=== PATIENT | female | born 1970 | race Caucasian/White ===

== ENCOUNTER 2017-09-03 16:09 | Inpatient (IN) ==
[2017-09-03] MEDS ORDERED: Ondansetron 4 MG/2 ML VIAL IVP ONE (17:02)
[2017-09-03] MEDS ORDERED: GI Cocktail 40 ML EACH PO ONE (17:02)
--- NOTE | 2017-09-03 17:05 | Emergency Department Note ---
Disposition Clinical Impression: Abdominal pain Qualifiers: Abdominal location: epigastric Qualified Code(s): R10.13 - Epigastric pain Pancreatitis Qualifiers: Chronicity: acute Pancreatitis type: unspecified pancreatitis type Acute pancreatitis complication: unspecified Qualified Code(s): K85.90 - Acute pancreatitis without necrosis or infection, unspecified Disposition: Admitted As Inpatient Condition: Good Referrals: NONE,PCP [Primary Care Provider] - Forms: ED Satisfaction Letter Time of Disposition: 19:13 General Adult HPI - General Chief complaint: ED Chest Pain Stated complaint: chest/abd/back pain Time Seen by Provider: 09/03/17 16:19 Source: patient, family (Father, brother) Mode of arrival: ambulatory Limitations: no limitations Nursing Notes Reviewed: Yes Vital Signs Reviewed: Yes - History of Present Illness HPI Narrative: 47-year-old female presents with abdominal pain. Patient re-presents an emergency department after recurrence of pain. She was initially evaluated earlier today here in the emergency department and was discharged home. She states yesterday around 1999 she began feeling nauseated and experience a sharp pain mostly in the left upper quadrant that wrapped around to the right upper quadrant. Nothing seems to make it better or worse. Maybe some association with meals but her appetite has decreased. She was seen and evaluated here with a chest pain workup including a gallbladder ultrasound due to her elevated LFT and bilirubin which did not reveal any acute abnormality. She was scheduled with gastroenterology as an outpatient discharge home pain-free after G.I. cocktail. Patient went home around 9 o'clock and was prescribed Carafate which she took and fell asleep and had roughly additional 2 hours of relief. Around 11 o'clock she began experiencing the pain began. She reports a constant cramping and aching that progressively becomes sharp in nature. Sometimes last seconds to minutes. She denies any injury or trauma. History of cholecystectomy 20 years ago. Denies any other complaints at this time. Denies alcohol use. Denies any cardiac ischemic disease. EKG performed at that time did not reveal any acute ischemic changes. Troponin less than 0.03. Pain Scale: 10 - Related Data Home Medications Medication Instructions Recorded Confirmed Aspirin [Lo-Dose Aspirin EC] 81 mg PO DAILY 09/03/17 09/03/17 Multivit-Min/FA/Lycopen/Lutein [A 1 tab PO DAILY 09/03/17 09/03/17 Thru Z Select Multivit Tab] Previous Rx's Medication Instructions Recorded Omeprazole 20 mg PO DAILY #30 tablet. 09/03/17 Sucralfate [Carafate] 1 gm PO QIDA #56 tablet 09/03/17 Allergies Allergy/AdvReac Type Severity Reaction Status Date / Time No Known Allergies Allergy Verified 04/01/17 10:29 All systems ED: reviewed and negative except as stated. Review of Systems: As Per HPI Constitutional: Denies: fever Cardiovascular: Denies: chest pain Respiratory: Denies: cough, dyspnea Gastrointestinal: Reports: abdominal pain, nausea, vomiting Genitourinary: Denies: urgency, dysuria, hematuria Musculoskeletal: Reports: back pain. Denies: neck pain Past Medical History - Past Medical History Attestation: Yes The following information was validated with the patient. Source: patient Medical history: Reports: no medical history Psychiatric history: Reports: no psych history - Social History Smoking Status: Current every day smoker Smokeless Tobacco Status: No Alcohol use: Reports: none Drug use: Reports: none Physical Exam - General General appearance: alert, in no apparent distress - Head Head exam: atraumatic, normocephalic, normal inspection - Eye Eye exam: Present: normal appearance, PERRL, EOMI - ENT ENT exam: normal exam, normal oropharynx, mucous membranes moist - Neck Neck exam: Present: normal inspection, full ROM, trachea midline - Chest Chest inspection: Present: normal inspection, symmetric chest wall rise - Respiratory Respiratory exam: Present: normal lung sounds bilaterally. Absent: respiratory distress, wheezes - Cardiovascular Cardiovascular exam: Present: regular rate, normal rhythm, normal heart sounds - Abdominal Exam Abdominal exam: Present: soft, tenderness, normal bowel sounds. Absent: distention, guarding, rebound, rigidity, Mcgee's sign, Rovsing's sign, tenderness at McBurney's Point Abdominal tenderness: Present: LUQ, epigastrium - Extremities Exam Extremities exam: Present: normal inspection, full ROM. Absent: tenderness, pedal edema - Back Exam Back exam: Present: normal inspection, full ROM, CVA tenderness (L). Absent: tenderness - Neurological Exam Neurological exam: Present: alert, oriented X3 - Skin Skin exam: Present: warm, dry, intact, normal color. Absent: rash, cyanosis, diaphoresis Course Course Narrative: Patient Ray presents with similar complaints from earlier this morning. Initial workup was unremarkable other than elevated LFT and bilirubin. Patient was given outpatient follow-up with gastroenterologists. On examination she is mildly tender in the epigastric region. There is some voluntary guarding as well. Normal bowel sounds. Reviewed her prior workup and will repeat troponin , EKG and obtain a CT of the abdomen and pelvis. She had relief with a G.I. cocktail earlier today and will attempt again. Zofran for nausea as well. Patient is in agreement with this plan. - Reevaluation(s) Reevaluation #1: Troponin again is less than 0.03. EKG revealed normal sinus rhythm without acute ischemic changes. CT confirmed acute pancreatitis without fluid collection. She also has a fat containing umbilical hernia and nonobstructing right nephrolithiasis. Review of her prior lipase was within normal limits of 33. Will admit her for symptom control for pancreatitis she needs to criteria of clinical presentation and radiologic imaging. Patients in agreement this plan. Will continue with fluid hydration and symptom control. Patient will be NPO. Impression is acute pancreatitis and abdominal pain. Time: 19:13 - Consultations Consultation #1: Spoke with on-call hospitalist kyra Parker to admit for acute pancreatitis. No further orders at this time Time: 19:16 Vital Signs Temperature 98.0 F 09/03/17 16:10 Pulse Rate 93 09/03/17 16:10 Respiratory Rate 23 09/03/17 16:10 Blood Pressure 130/80 09/03/17 16:10 O2 Sat by Pulse Oximetry 95 09/03/17 16:10 Temperature 98.0 F 09/03/17 16:21 Pulse Rate 83 09/03/17 18:46 Respiratory Rate 20 09/03/17 18:46 Blood Pressure 153/97 09/03/17 18:46 O2 Sat by Pulse Oximetry 95 09/03/17 18:46 Oxygen Delivery Oxygen Delivery Room Air Medical Decision Making - MDM Narrative Medical decision making narrative: Patient was discussed with my attending physician who agrees with ED management and final disposition. They independently evaluated the patient. Please refer to their attestation to this encounter for additional information. This note was generated by [employer] voice recognition software and as a result grammatical or spelling errors may occur using this program. - Medical Records Medical records reviewed: Yes I reviewed the patient's medical records. - Lab Data Lab results reviewed: Yes I reviewed the patient's lab results. Lab Results 09/03/17 Range/Units 17:10 Troponin I < 0.03 (< 0.04) ng/mL - Radiology Data Radiology results reviewed: Yes I reviewed the patient's radiology results. Abdomen/Pelvis CT 09/03/17 17:03 IMPRESSION: 1. Acute pancreatitis. No organized fluid collections are identified. Adjacent lymphadenopathy, likely reactive. 2. Nonobstructing right nephrolithiasis. 3. Mild intrahepatic and extrahepatic biliary dilatation, likely postsurgical. 4. Fat filled periumbilical hernia. D/ / Edy Pires MD / Edy Pires MD Interpreting Provider: Edy Pires MD
--- NOTE | 2017-09-03 17:11 | Emergency Department Note ---
Disposition Clinical Impression: Abdominal pain Qualifiers: Abdominal location: generalized Qualified Code(s): R10.84 - Generalized abdominal pain Disposition: Still a Patient Referrals: NONE,PCP [Primary Care Provider] - Forms: ED Satisfaction Letter General Adult HPI - General Chief complaint: ED Chest Pain Stated complaint: chest/abd/back pain Time Seen by Provider: 09/03/17 16:19 - History of Present Illness Pain Scale: 10 - Related Data Home Medications Medication Instructions Recorded Confirmed Aspirin 04/01/17 Centrum Complete Multivit Tab 04/01/17 Previous Rx's Medication Instructions Recorded Amoxicillin [Amoxil] 500 mg PO TID #30 capsule 04/01/17 GuaiFENesin/Codeine [ROBITUSSIN 5 ml PO Q4-6H PRN #120 ml 04/01/17 w/CODEINE] Ondansetron [Zofran] 8 mg PO Q8HR #15 tablet 04/01/17 Cyclobenzaprine [Flexeril] 10 mg PO TID PRN 7 Days #21 tablet 07/14/17 Naproxen 500 mg PO BID 10 Days #20 tablet 07/14/17 predniSONE [PredniSONE] 20 mg PO DAILY #13 tablet 07/14/17 Omeprazole 20 mg PO DAILY #30 tablet. 09/03/17 Sucralfate [Carafate] 1 gm PO QIDAC #56 tablet 09/03/17 Allergies Allergy/AdvReac Type Severity Reaction Status Date / Time No Known Allergies Allergy Verified 04/01/17 10:29 Past Medical History - Past Medical History Medical history: Reports: no medical history Psychiatric history: Reports: no psych history - Social History Smoking Status: Current every day smoker Smokeless Tobacco Status: No Alcohol use: Reports: none Drug use: Reports: none Physical Exam - General General appearance: alert, in no apparent distress Course - Reevaluation(s) Reevaluation #1: ATTESTATION NOTE I examined this patient and my medical decision-making was reviewed with the [employer] TRAINER/PA/Advanced Practice Nurse/Resident Physician. I agree with the documented findings, disposition and treatment plan as described except to the extent set forth below. ED attending note: Patient seen with emergency medicine resident Dr. Steven Vega. We independently evaluated the patient. We independently had face-to- face contact with the patient. Please see a copy of his note for details of the history and physical, evaluation, management and disposition of this emergency Department patient. Briefly: 47-year-old female seen about 7:00 this morning by the emergency department attending Dylan Chambers and resident Frank Pardo, please see copy of their note for details of that portion the patient encounter. Patient an extensive workup including right upper quadrant ultrasound after elevated LFTs found on lab which was negative. Patient seemed to check cocktail had symptom resolution went home and slept with the same pain in the epigastric quadrant areas here for further evaluation she surgically benign afebrile stable vital signs patient is getting antiemetics screening labs and abdominopelvic CT. Disposition pending. Time: 17:09 Vital Signs Temperature 98.0 F 09/03/17 16:10 Pulse Rate 93 09/03/17 16:10 Respiratory Rate 23 09/03/17 16:10 Blood Pressure 130/80 09/03/17 16:10 O2 Sat by Pulse Oximetry 95 09/03/17 16:10 Temperature 98.0 F 09/03/17 16:21 Pulse Rate 93 09/03/17 16:21 Respiratory Rate 23 09/03/17 16:21 Blood Pressure 130/80 09/03/17 16:21 O2 Sat by Pulse Oximetry 95 09/03/17 16:21 Oxygen Delivery Oxygen Delivery Room Air
[2017-09-03 17:48] LABS: Troponin I < 0.03 ng/mL (< 0.04)
[2017-09-03] MEDS ORDERED: 0.9 % Sodium Chloride 1,000 ML IVC ONE (18:26)
[2017-09-03] MEDS ORDERED: *HR* FentaNYL (PF) 100 MCG/2 ML VIAL IVP ONE (18:39)
[2017-09-03] MEDS ORDERED: Ondansetron 4 MG/2 ML VIAL IVP PRN (19:46)
[2017-09-03] MEDS ORDERED: Naloxone 0.4 MG/ML INJ IVP PRN (19:46)
[2017-09-03] MEDS ORDERED: OXYCODONE Oral CONC 10 MG/0.5 ML ORAL.SYG SL PRN ×2 (19:46)
--- NOTE | 2017-09-03 19:50 | Internal Med History&Physical ---
Date of Encounter: 09/03/17 Time of Encounter: 19:48 Internal Medicine - H&P: HPI Chief complaint: Abdominal pain Admitted From: Emergency Dept History of present illness: Ms. Dickson is a 47 year old female with a past medical history of GERD and tobacco abuse who came to emergency room complaining of abdominal pain that started last night around 8 PM, in the morning she was sent back home with Carafate and omeprazole and order to follow-up with GI as her lipase was only 36 , the patient has vomited 4 times since yesterday and the abdominal pain got worse 10 out of 10 in intensity and got better down to 6 out of [address] scan of the abdomen showed findings compatible with acute pancreatitis and surrounding lymphadenopathy also nonobstructive right nephrolithiasis and intra-and extrahepatic dilatation compatible with prior cholecystectomy. Last time she ate was at 9 AM this morning. Her AST is 205 ALT 244. Heart rate was 110. Denies any other symptoms Past Med Surg Social Fam HX - Past Medical History Medical history: other (Tobacco abuse, GERD, cholelithiasis) Psychiatric history: no psych history - Past Surgical History Surgical History: cholecystectomy (20 years ago) - Social History Smoking Status: Current every day smoker Packs per day: One pack per day Smokeless Tobacco Status: No Alcohol use: none (Denies any drinking) Drug use: none - Additional Family History Additional family history: Father and mother with CAD with stents Internal Medicine - H&P: Meds Aspirin [Lo-Dose Aspirin EC] 81 mg PO DAILY 09/03/17 [History] Multivit-Min/FA/Lycopen/Lutein [A Thru Z Select Multivit Tab] 1 tab PO DAILY [History] Omeprazole 20 mg PO DAILY #30 tablet. 09/03/17 [Rx] Sucralfate [Carafate] 1 gm PO QIDAC #56 tablet 09/03/17 [Rx] 3 Allergy/AdvReac Type Severity Reaction Status Date / Time No Known Allergies Allergy Verified 04/01/17 10:29 All Systems PM: A 10-system review of systems was performed and is negative for pertinent findings except as documented above in the HPI. Review of systems: No chest pain, no dysuria, no diarrhea, no fevers, other systems out of the 10 reviewed were negative - Constitutional Vitals: Temp Pulse Resp BP Pulse Ox 98.0 F 83 20 153/97 95 09/03/17 16:21 09/03/17 18:46 09/03/17 18:46 09/03/17 18:46 09/03/17 18:46 General appearance: Present: A&O X 3 (Dry mucosa, appears dehydrated) - Head Head exam: Present: atraumatic, normocephalic - Eye Eye exam: Present: PERRL, conjuntiva pink, sclera anicteric Pupils: Present: PERRL - Neck Neck exam general surgery: Present: supple, trachea midline. Absent: lymphadenopathy - Respiratory Respiratory exam: Present: CTAB. Absent: accessory muscle use, rales, rhonchi, wheezes - Cardiovascular Cardiovascular exam: Present: RRR, +S1, +S2. Absent: diastolic murmur, gallop, rubs, systolic murmur - GI/Abdominal GI/Abdominal exam: Present: distended, normal bowel sounds, soft, tenderness ( Severe epigastric tenderness), no peritoneal signs - Extremities Exam Extremities exam: Present: warm, radial pulses palpable and symmetrical. Absent : calf tenderness, cyanotic, pedal edema - Neurological Exam Neurological exam: Present: CN II-XII intact, oriented X3, no focal deficits. Absent: pronater drift, facial droop, speech deficit - Skin Skin exam: Present: dry, intact Internal Med - H&P Results - Labs Labs: Troponin is less than 0.03 - Assessment and plan (1) Pancreatitis Current Visit: Yes Status: Acute Assessment and plan: Acute pancreatitis Does not drink alcohol Unclear etiology, order lipid panel We will order lipase was morning Consider MRI of the abdomen if she has not improving to consider possible mass with lymphadenopathy Nothing by mouth, IV fluids, pain control Protonix IV for GI prophylaxis and subcutaneous tenderness heparin for DVT prophylaxis. The patient will be admitted as inpatient, expected to stay more than 2 midnights. Full code. Time spent on this admission 40 minutes Qualifiers: Chronicity: acute Pancreatitis type: unspecified pancreatitis type Acute pancreatitis complication: unspecified Qualified Code(s): K85.90 - Acute pancreatitis without necrosis or infection, unspecified (2) Dehydration Current Visit: Yes Status: Acute (3) Tobacco abuse Current Visit: Yes Status: Acute Assessment and plan: Smoking cessation counseling given for 5 minutes, nicotine patch ordered (4) Elevated LFTs Current Visit: No Status: Acute Assessment and plan: Likely related to pancreatitis (5) GERD (gastroesophageal reflux disease) Current Visit: No Status: Acute Qualifiers: Esophagitis presence: esophagitis presence not specified Qualified Code(s) : K21.9 - Gastro-esophageal reflux disease without esophagitis (6) Nausea and vomiting Current Visit: No Status: Acute Qualifiers: Vomiting type: unspecified Vomiting Intractability: non-intractable Qualified Code(s): R11.2 - Nausea with vomiting, unspecified - Time Spent With Patient Total time spent is greater than 50% in coordination of care (as documented) at patient's floor/unit and/or counseling patient:
[2017-09-03 19:53] LABS: Chol/HDL Ratio 7.7 (0-4.9); Cholesterol 278 mg/dL (< 200); HDL Cholesterol 36 mg/dL (40-59); LDL Cholesterol,Calculated 208 mg/dL (0-99); Triglycerides 170 mg/dL (< 150)
[2017-09-03] MEDS: Nicotine 21 MG PATCH.TD24 TD SCH (20:55)
[2017-09-03] MEDS: Acetaminophen 325 MG TABLET PO PRN (20:55)
[2017-09-03] MEDS: 0.9 % Sodium Chloride 1,000 ML IVC SCH (23:14)
[2017-09-04] MEDS: *HR* Heparin 5,000 UNIT/ML VIAL SQ SCH ×4 (00:55→23:22)
[2017-09-04] MEDS: Acetaminophen 325 MG TABLET PO PRN ×3 (00:58→23:28)
[2017-09-04] MEDS: Pantoprazole 40 MG VIAL IVP SCH ×2 (00:58→05:09)
[2017-09-04] MEDS: 0.9 % Sodium Chloride 1,000 ML IVC SCH (05:10)
[2017-09-04 05:21] LABS: Basophils % 0.3 %; Eosinophils % 0.5 %; Hematocrit 36.9 % (35.3-44.9); Hemoglobin 12.8 g/dL (11.5-15.4); Immature Granulocytes % 0.3 % (0-4); Lymphocytes # 1.3 K/mcL (0.6-4.6); Lymphocytes % 21.4 %; Mean Corpuscular HGB Conc 34.7 g/dL (31.6-35.5); Mean Corpuscular Hemoglobin 30.8 pg (28.0-33.3); Mean Corpuscular Volume 88.7 fL (83.0-100.0); Mean Platelet Volume 10.1 fL (9.4-12.4); Monocytes # 0.3 K/mcL (0.0-1.3); Monocytes % 5.3 %; Neutrophils # 4.3 K/mcL (1.6-8.9); Platelet Count 197 K/mcL (140-400); Red Blood Count 4.16 M/mcL (3.82-4.97); Red Cell Distribution Width 12.9 % (11.5-14.5); Segmented Neutrophils % 72.2 %
[2017-09-04 06:00] LABS: Alanine Aminotransferase 187 Units/L (7-52); Albumin 3.8 g/dL (3.5-5.7); Albumin/Globulin Ratio 1.3 (1.1-2.2); Alkaline Phosphatase 142 Units/L (34-104); Aspartate Amino Transferase 108 Units/L (13-39); BUN/Creatinine Ratio 11 (6-26); Bilirubin,Total 1.8 mg/dL (0.3-1.0); Blood Urea Nitrogen 8 mg/dL (6-20); Calcium 8.6 mg/dL (8.6-10.3); Carbon Dioxide 25 mEq/L (23-29); Chloride 109 mEq/L (98-107); Chol/HDL Ratio 8.2 (0-4.9); Cholesterol 214 mg/dL (< 200); Globulin 2.9 g/dL (2.4-3.5); Glucose 108 mg/dL (70-105); HDL Cholesterol 26 mg/dL (40-59); LDL Cholesterol,Calculated 161 mg/dL (0-99); Lipase 1746 Units/L (11-82); Osmolality,Calculated 289 (280-300); Potassium 3.9 mEq/L (3.5-5.1); Sodium 140 mEq/L (136-145); Total Protein 6.7 g/dL (6.4-8.9); Triglycerides 137 mg/dL (< 150); eGFR For African Americans > 60 (> 60); eGFR For Non-African Americans > 60 (> 60)
[2017-09-04] MEDS: Nicotine 21 MG PATCH.TD24 TD SCH (10:36)
[2017-09-04] MEDS: Acetaminophen/Aspirin/Caffeine TABLET PO PRN ×2 (11:25→17:29)
--- NOTE | 2017-09-04 16:08 | Internal Med Progress Note ---
Date of Encounter: 09/04/17 Time of Encounter: 13:10 - Assessment and plan (1) Pancreatitis Current Visit: Yes Status: Acute Assessment and plan: Improving clinically, he reported feeling hungry and requested diet. Continue clear liquid diet as tolerated, pain control with oral oxycodone, IV hydration, PPI, when necessary antiemetics. Etiology likely due to small biliary stone as patient also has mild hepatitis with elevated LFTs; serum lipase noted to be elevated. Qualifiers: Chronicity: acute Pancreatitis type: unspecified pancreatitis type Acute pancreatitis complication: no infection or necrosis Qualified Code(s): K85.90 - Acute pancreatitis without necrosis or infection, unspecified (2) GERD (gastroesophageal reflux disease) Current Visit: Yes Status: Chronic Qualifiers: Esophagitis presence: esophagitis presence not specified Qualified Code(s) : K21.9 - Gastro-esophageal reflux disease without esophagitis (3) Tobacco abuse Current Visit: Yes Status: Chronic Assessment and plan: Continue nicotine transdermal patch. - Time Spent With Patient Total time spent is greater than 50% in coordination of care (as documented) at patient's floor/unit and/or counseling patient: - Subjective Interval history: Reports feeling better with improving abdominal pain, however still has mild to moderate pain in epigastrium and left upper quadrant, radiating to her left back. No nausea, vomiting, diarrhea. Tolerates clear liquid diet. - Constitutional Vitals: Temp Pulse Resp BP Pulse Ox 98.3 F 64 16 127/73 96 09/04/17 15:04 09/04/17 15:04 09/04/17 15:04 09/04/17 15:04 09/04/17 15:04 General appearance: Present: A&O X 3, answers questions appropriately - Respiratory Respiratory exam: Present: CTAB. Absent: accessory muscle use, rales, rhonchi, wheezes - Cardiovascular Cardiovascular exam: Present: RRR, +S1, +S2. Absent: diastolic murmur, gallop, rubs, systolic murmur - GI/Abdominal GI/Abdominal exam: Present: normal bowel sounds, soft (obese; tenderness in epigastrium/LUQ), no peritoneal signs. Absent: distended, tenderness - Extremities Exam Extremities exam: Present: full ROM, warm, radial pulses palpable and symmetrical. Absent: calf tenderness, cyanotic, pedal edema - Neurological Exam Neurological exam: Present: CN II-XII intact, oriented X3, no focal deficits. Absent: pronater drift, facial droop, speech deficit Internal Medicine: Result - Labs CBC & Chem 7: 09/04/17 04:56 09/04/17 04:56 Labs: Short CBC 09/04/17 Range/Units 04:56 WBC 5.9 (4.3-11.1) K/mcL Hgb 12.8 (11.5-15.4) g/dL Hct 36.9 (35.3-44.9) % Plt Count 197 (140-400) K/mcL Neutrophils # 4.3 (1.6-8.9) K/mcL BMP 09/04/17 04:56 Sodium 140 Potassium 3.9 Chloride 109 H Carbon Dioxide 25 BUN 8 Creatinine 0.74 Glucose 108 H Calcium 8.6 Liver Function 09/04/17 Range/Units 04:56 Total Bilirubin 1.8 H (0.3-1.0) mg/dL AST 108 H (13-39) Units/L ALT 187 H (7-52) Units/L Alkaline Phosphatase 142 H (34-104) Units/L Albumin 3.8 (3.5-5.7) g/dL Consult Discharge Plan - Plan Referrals: NONE,PCP [Primary Care Provider] -
[2017-09-05] MEDS: *HR* Heparin 5,000 UNIT/ML VIAL SQ SCH (05:08)
[2017-09-05 05:54] LABS: Alanine Aminotransferase 126 Units/L (7-52); Albumin 3.8 g/dL (3.5-5.7); Albumin/Globulin Ratio 1.2 (1.1-2.2); Alkaline Phosphatase 126 Units/L (34-104); Aspartate Amino Transferase 46 Units/L (13-39); BUN/Creatinine Ratio 13 (6-26); Bilirubin,Total 0.7 mg/dL (0.3-1.0); Blood Urea Nitrogen 8 mg/dL (6-20); Calcium 9.1 mg/dL (8.6-10.3); Carbon Dioxide 27 mEq/L (23-29); Chloride 104 mEq/L (98-107); Globulin 3.1 g/dL (2.4-3.5); Glucose 101 mg/dL (70-105); Osmolality,Calculated 280 (280-300); Potassium 3.6 mEq/L (3.5-5.1); Sodium 136 mEq/L (136-145); Total Protein 6.9 g/dL (6.4-8.9); eGFR For African Americans > 60 (> 60); eGFR For Non-African Americans > 60 (> 60)
[2017-09-05] MEDS: Pantoprazole 40 MG VIAL IVP SCH (06:25)
[2017-09-05] MEDS: Nicotine 21 MG PATCH.TD24 TD SCH (09:28)
[2017-09-05] MEDS: Acetaminophen 325 MG TABLET PO PRN (12:58)
--- NOTE | 2017-09-05 15:19 | Discharge Summary ---
- NOTES TO OUTPATIENT PROVIDER Notes to Outpatient Provider: Acute pancreatitis, probably biliary; Date of Encounter: 09/05/17 Time of Encounter: 15:17 - Discharge Diagnosis (1) Pancreatitis Priority: Primary Status: Acute Qualifiers: Chronicity: acute Pancreatitis type: unspecified pancreatitis type Acute pancreatitis complication: no infection or necrosis Qualified Code(s): K85.90 - Acute pancreatitis without necrosis or infection, unspecified (2) GERD (gastroesophageal reflux disease) Priority: Secondary Status: Chronic Qualifiers: Esophagitis presence: esophagitis presence not specified Qualified Code(s) : K21.9 - Gastro-esophageal reflux disease without esophagitis (3) Tobacco abuse Priority: Secondary Status: Chronic Hospital course: Ms. Dickson is a 47 year old female with the above medical problems, who was admitted with epigastric and left upper quadrant abdominal pain. CT abdomen/ pelvis showed acute pancreatitis. Serum lipase was elevated. Etiology is undetermined, probably biliary. Patient is status post cholecystectomy, does not consume alcohol. She was started on conservative management with bowel rest , IV hydration, pain control, when necessary antiemetics and PPI. Her pain significantly improved by the next day and she was able to tolerate diet. Liver enzymes were elevated at the time of admission, now improving, this is probably related to small biliary stones. Patient is currently medically stable for discharge with recommendations to continue low-fat/low-cholesterol diet and outpatient follow-up. Discharge discussed with: patient - Time Spent with Patient Total time spent providing and/or coordinating discharge services: Greater than 30 minutes (40 min) - Discharge Medications Home Medications: Aspirin [Lo-Dose Aspirin EC] 81 mg PO DAILY 09/03/17 [History] Multivit-Min/FA/Lycopen/Lutein [A Thru Z Select Multivit Tab] 1 tab PO DAILY [History] Omeprazole 20 mg PO DAILY #30 tablet. 09/03/17 [Rx] Sucralfate [Carafate] 1 gm PO QIDAC #56 tablet 09/03/17 [Rx] Acetaminophen [Tylenol] 650 mg PO Q4HR PRN tablet 09/05/17 [Rx] Allergies/Adverse Reactions: 3 Allergy/AdvReac Type Severity Reaction Status Date / Time No Known Allergies Allergy Verified 04/01/17 10:29 Date of admission: 09/03/17 19:43 Primary care physician: PCP NONE Discharging clinician: Tova Johnson Anticipated date of discharge: 09/05/17 - Constitutional Vitals: Temp Pulse Resp BP Pulse Ox 99.1 F 86 16 126/79 93 09/05/17 10:52 09/05/17 10:52 09/05/17 10:52 09/05/17 10:52 09/05/17 10:52 General appearance: Present: A&O X 3, answers questions appropriately - GI/Abdominal GI/Abdominal exam: Present: normal bowel sounds, soft (mild epigastric and LUQ tenderness), no peritoneal signs. Absent: distended, tenderness - Patient Status Disposition: Home, Self-Care Condition: Good Functional capacity at discharge: independent ambulation Overall status at discharge: patient is progressing back to baseline - Discharge Instructions Instructions: Pancreatitis (DC) Follow Up With: NONE,PCP [Primary Care Provider] - (Gave patient phone # to find a PCP. ) Forms: Work/School Release Additional Instructions: F/up with PCP in 1-2 weeks - Diet and Activity Activity: resume usual activities as tolerated Diet: low fat, low cholesterol
[2017-09-05 15:59] VITALS: BP 113/78
--- NOTE | 2017-09-06 21:32 | Electrocardiograph Report ---
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
== END 2017-09-05 16:56 | disposition home or self-care (01) | DRG 440 ==
LOC: 3ANU 16:09 → EMEROO 16:09 → SUATTDRO 19:43 → 3ANU 20:22
PROVIDERS: ADMIT Internal Medicine Hematology & Oncology; ATTEND Internal Medicine

== ENCOUNTER 2018-01-06 05:26 | Inpatient (IN) ==
[2018-01-06 05:50] LABS: Basophils % 0.1 %; Eosinophils % 0.1 %; Hemoglobin 14.3 g/dL (11.5-15.4); Immature Granulocytes % 0.3 % (0-4); Lymphocytes # 0.4 K/mcL (0.6-4.6); Lymphocytes % 4.4 %; Mean Corpuscular Hemoglobin 29.1 pg (28.0-33.3); Mean Corpuscular Volume 85.5 fL (83.0-100.0); Mean Platelet Volume 9.8 fL (9.4-12.4); Monocytes # 0.2 K/mcL (0.0-1.3); Neutrophils # 7.3 K/mcL (1.6-8.9); Platelet Count 208 K/mcL (140-400); Red Blood Count 4.91 M/mcL (3.82-4.97); Red Cell Distribution Width 12.4 % (11.5-14.5); Segmented Neutrophils % 93.1 %
[2018-01-06] MEDS ORDERED: Hyoscyamine SL 0.125 MG TAB.SUBL SL STA (05:51)
[2018-01-06] MEDS ORDERED: *HR* FentaNYL (PF) 100 MCG/2 ML VIAL IVP ONE ×3 (05:51→10:06)
[2018-01-06] MEDS ORDERED: Ondansetron 4 MG/2 ML VIAL IVP ONE (05:51)
[2018-01-06 05:55] LABS: INR 1.4; Prothrombin Time 15.2 Seconds (9.4-12.1)
--- NOTE | 2018-01-06 05:56 | Emergency Department Note ---
Disposition Clinical Impression: Epigastric pain Disposition: Still a Patient Referrals: Chantal Arteaga, IRVIN [Primary Care Provider] - Forms: ED Satisfaction Letter, Work/School Release Abdominal Pain HPI - General Chief Complaint: ED Abdominal Pain Stated Complaint: cp Time Seen by Provider: 01/06/18 05:29 Source: patient Mode of arrival: ambulatory Limitations: no limitations Nursing Notes Reviewed: Yes Vital Signs Reviewed: Yes - History of Present Illness HPI Narrative: 47 year old female with history of hyperthyroid and pancreatitis arrives to the ED complaining of epigastric pain with associated nausea that started roughly 24 hours ago. The patient was seen in the ED 1 day ago for same complaint. The patient had labwork and CT that reveals no acute process. The patient was discharged home with [facility] but did not fill her Rx yet. The patient denies any other complaint at this time. She is uncomfortable on exam moaning in the room secondary to the pain. She states this was kind of like her previous diagnosis of pancreatitis. Pain Scale: 9 - Related Data Home Medications Medication Instructions Recorded Confirmed RX: Aspirin [Lo-Dose Aspirin EC] 81 mg PO DAILY 09/03/17 09/03/17 RX: Multivit-Min/FA/Lycopen/Lutein 1 tab PO DAILY 09/03/17 09/03/17 [A Thru Z Select Multivit Tab] Previous Rx's Medication Instructions Recorded RX: Omeprazole 20 mg PO DAILY #30 tablet. 09/03/17 RX: Sucralfate [Carafate] 1 gm PO QIDAC #56 tablet 09/03/17 RX: Acetaminophen [Tylenol] 650 mg PO Q4HR PRN tablet 09/05/17 HYDROcodone/Acet 5/325 mg [[place] 1 tab PO Q6H PRN 3 Days #6 tab 01/05/18 5-325 mg] Mag Hydrox/Al Hydrox/Simeth 15 ml PO Q6HR #300 udc 01/05/18 [Maalox] Allergies Allergy/AdvReac Type Severity Reaction Status Date / Time No Known Allergies Allergy Verified 04/01/17 10:29 All systems ED: reviewed and negative except as stated. Constitutional: Denies: fever, chills, weakness Cardiovascular: Denies: chest pain Respiratory: Denies: dyspnea Gastrointestinal: Reports: abdominal pain, nausea. Denies: vomiting, diarrhea, constipation, hematemesis, melena, hematochezia Genitourinary: Denies: urgency, dysuria Musculoskeletal: Denies: back pain, arthralgia Integumentary: Denies: rash Neurological: Denies: headache Abdominal Pain PMH - Past Medical History Medical history: Reports: other Reports: pancreatitis Female Surgical History: Reports: cholecystectomy, other Psychiatric history: Reports: no psych history - Social History Smoking status: Current every day smoker Alcohol use: Reports: none Drug use: Reports: none Physical Exam - General Limitations: no limitations General appearance: alert, in no apparent distress - Head Head exam: atraumatic, normocephalic, normal inspection - Eye Eye exam: Present: normal appearance, PERRL, EOMI - ENT ENT exam: normal exam, normal oropharynx, mucous membranes moist - Neck Neck exam: Present: normal inspection, full ROM, trachea midline - Chest Chest inspection: Present: normal inspection, symmetric chest wall rise - Respiratory Respiratory exam: Present: normal lung sounds bilaterally - Cardiovascular Cardiovascular exam: Present: regular rate, normal rhythm, normal heart sounds - Abdominal Exam Abdominal exam: Present: soft, tenderness (Epigastric), scar. Absent: distention, guarding, rebound, rigidity, heel tap sign, Mcgee's sign, tenderness at McBurney's Point - Extremities Exam Extremities exam: Present: normal inspection, full ROM. Absent: tenderness, pedal edema - Neurological Exam Neurological exam: Present: alert, oriented X3 - Skin Skin exam: Present: warm, dry, intact, normal color Course Vital Signs Temperature 97.7 F 01/06/18 05:31 Pulse Rate 90 01/06/18 05:31 Respiratory Rate 16 01/06/18 05:31 Blood Pressure 102/66 01/06/18 05:31 O2 Sat by Pulse Oximetry 96 01/06/18 05:31 Temperature 97.7 F 01/06/18 05:31 Pulse Rate 78 01/06/18 06:26 Respiratory Rate 20 01/06/18 06:26 Blood Pressure 127/77 01/06/18 06:26 O2 Sat by Pulse Oximetry 99 01/06/18 06:26 Oxygen Delivery Oxygen Delivery Room Air Abdominal Pain - MDM Narrative Medical decision making narrative: Heart rate 87 bpm. Normal sinus rhythm. No ST elevation or ST depression noted. No acute changes. - Lab Data Lab results reviewed: Yes I reviewed the patient's lab results. Result diagrams: 01/06/18 05:37 Lab Results 01/06/18 01/06/18 01/06/18 Range/Units 05:37 05:37 05:37 WBC 7.9 (4.3-11.1) K/mcL RBC 4.91 (3.82-4.97) M/mcL Hgb 14.3 (11.5-15.4) g/dL Hct 42.0 (35.3-44.9) % MCV 85.5 (83.0-100.0) fL MCH 29.1 (28.0-33.3) pg MCHC 34.0 (31.6-35.5) g/dL RDW 12.4 (11.5-14.5) % Plt Count 208 (140-400) K/mcL MPV 9.8 (9.4-12.4) fL Immature Gran % 0.3 (0-4) % Seg Neutrophils % 93.1 % Lymphocytes % 4.4 % Monocytes % 2.0 % Eosinophils % 0.1 % Basophils % 0.1 % Neutrophils # 7.3 (1.6-8.9) K/mcL Lymphocytes # 0.4 L (0.6-4.6) K/mcL Monocytes # 0.2 (0.0-1.3) K/mcL Eosinophils # 0.0 (0.0-0.6) K/mcL Basophils # 0.0 (0.0-0.2) K/mcL PT 15.2 H (9.4-12.1) Seconds INR 1.4 APTT 29.5 (26.0-36.0) Seconds Troponin I < 0.03 (< 0.04) ng/mL Attestation Statement - Attestation Attestation: I examined this patient and my medical decision-making was reviewed with the Resident Physician. I agree with the documented findings, disposition and treatment plan as described except to the extent set forth below. Findings consistent with nonspecific epigastric pain. She was seen yesterday and had a CT scan which shows no acute findings. Chest ongoing pain and history of pancreatitis. Plan to admit for GI consultation for intractable epigastric pain in the setting of possible idiopathic pancreatitis.
[2018-01-06 05:57] LABS: Activated Partial Thrombo Time 29.5 Seconds (26.0-36.0)
--- NOTE | 2018-01-06 05:59 | Emergency Department Note ---
Disposition Clinical Impression: Epigastric pain Disposition: Still a Patient Forms: ED Satisfaction Letter, Work/School Release Time of Disposition: 06:16 General Adult HPI - General Chief complaint: ED Abdominal Pain Stated complaint: cp Time Seen by Provider: 01/06/18 05:29 Source: patient Mode of arrival: ambulatory Limitations: no limitations Vital Signs Reviewed: Yes - History of Present Illness HPI Narrative: The patient is a 47 year old female with a history of hyperthyroid and pancreatitis that presents with epigastric abdominal pain. Per patient's report starting at 07:30 yesterday she developed epigastric abdominal pain that has been continuous since that time. The pain is heavy in character and radiates to the right upper quadrant and to the left upper quadrant at times. The pain is exacerbated by movement, and deep breaths. Patient denies any alleviating factors. She rates her pain a 9/10 at present. Patient was seen in the ED yesterday, her lab work was unremarkable for acute process. Abdominal CT showed no significant acute process. Patient says since being discharged home her pain has worsened and she was unable to go to a pharmacy to feel her prescription for [place]. She admits to nausea. She denies any fever, chills, shortness of breath, vomiting, diarrhea, constipation, dysuria, urinary urgency , hematuria, back pain, and any other associated symptoms. Patient states her symptoms feel similar when she was diagnosed with pancreatitis that required hospitalization in September. Pain Scale: 9 - Related Data Home Medications Medication Instructions Recorded Confirmed Aspirin [Lo-Dose Aspirin EC] 81 mg PO DAILY 09/03/17 09/03/17 Multivit-Min/FA/Lycopen/Lutein [A 1 tab PO DAILY 09/03/17 09/03/17 Thru Z Select Multivit Tab] Previous Rx's Medication Instructions Recorded Omeprazole 20 mg PO DAILY #30 tablet. 09/03/17 Sucralfate [Carafate] 1 gm PO QIDAC #56 tablet 09/03/17 Acetaminophen [Tylenol] 650 mg PO Q4HR PRN tablet 09/05/17 HYDROcodone/Acet 5/325 mg [[place] 1 tab PO Q6H PRN 3 Days #6 tab 01/05/18 5-325 mg] Mag Hydrox/Al Hydrox/Simeth 15 ml PO Q6HR #300 udc 01/05/18 [Maalox] Allergies Allergy/AdvReac Type Severity Reaction Status Date / Time No Known Allergies Allergy Verified 04/01/17 10:29 Constitutional: Denies: fever, chills Eyes: Denies: eye pain, vision change ENT ED: Denies: throat pain, congestion Cardiovascular: Reports: chest pain. Denies: palpitations, syncope Respiratory: Denies: cough, dyspnea, wheezes Gastrointestinal: Reports: abdominal pain, nausea. Denies: vomiting, diarrhea, constipation, hematemesis, melena, hematochezia Genitourinary: Denies: urgency, dysuria, frequency, hematuria Musculoskeletal: Denies: back pain, neck pain Integumentary: Denies: rash, lesions Neurological: Denies: headache, weakness, numbness, paresthesias Past Medical History - Past Medical History Medical history: Reports: other (pancreatitis, hyperthyroid) Surgical history: Reports: cholecystectomy Psychiatric history: Reports: no psych history - Social History Smoking Status: Current every day smoker Packs per day: 0.5 PPD Smokeless Tobacco Status: No Alcohol use: Reports: none Drug use: Reports: none Physical Exam - General Limitations: no limitations General appearance: alert, in distress (mild) - Head Head exam: atraumatic, normocephalic - Eye Eye exam: Present: normal appearance. Absent: scleral icterus, conjunctival injection - ENT ENT exam: normal exam, mucous membranes moist, normal external ear exam - Neck Neck exam: Present: normal inspection, full ROM, trachea midline - Chest Chest inspection: Present: normal inspection, symmetric chest wall rise - Respiratory Respiratory exam: Present: normal lung sounds bilaterally. Absent: respiratory distress, wheezes - Cardiovascular Cardiovascular exam: Present: regular rate, normal rhythm, normal heart sounds. Absent: systolic murmur, diastolic murmur, rubs, gallop - Abdominal Exam Abdominal exam: Present: soft, normal bowel sounds. Absent: distention, guarding, rebound, rigidity Abdominal tenderness: Present: epigastrium, moderate - Extremities Exam Extremities exam: Present: normal inspection, full ROM. Absent: pedal edema - Back Exam Back exam: Present: normal inspection, full ROM - Neurological Exam Neurological exam: Present: alert, oriented X3 - Psychiatric Psychiatric exam: Present: normal affect, normal mood - Skin Skin exam: Present: warm, dry, intact Course Course Narrative: Patient is a 47 year old female that presents with epigastric abdominal pain and nausea. Gastritis, pancreatitis, ACS were all considered in the differential diagnosis. CBC, CMP, Lipase, UA, troponin, EKG, and chest X-ray were ordered. Levsin, fentanyl, and zofran were ordered for pain and nausea control. Vital Signs Temperature 97.7 F 01/06/18 05:31 Pulse Rate 90 01/06/18 05:31 Respiratory Rate 16 01/06/18 05:31 Blood Pressure 102/66 01/06/18 05:31 O2 Sat by Pulse Oximetry 96 01/06/18 05:31 Temperature 97.7 F 01/06/18 05:31 Pulse Rate 90 01/06/18 05:31 Respiratory Rate 16 01/06/18 05:31 Blood Pressure 102/66 01/06/18 05:31 O2 Sat by Pulse Oximetry 96 01/06/18 05:31 Oxygen Delivery Oxygen Delivery Room Air Medical Decision Making - Lab Data Result diagrams: 01/06/18 05:37 Lab Results 01/06/18 01/06/18 Range/Units 05:37 05:37 WBC 7.9 (4.3-11.1) K/mcL RBC 4.91 (3.82-4.97) M/mcL Hgb 14.3 (11.5-15.4) g/dL Hct 42.0 (35.3-44.9) % MCV 85.5 (83.0-100.0) fL MCH 29.1 (28.0-33.3) pg MCHC 34.0 (31.6-35.5) g/dL RDW 12.4 (11.5-14.5) % Plt Count 208 (140-400) K/mcL MPV 9.8 (9.4-12.4) fL Immature Gran % 0.3 (0-4) % Seg Neutrophils % 93.1 % Lymphocytes % 4.4 % Monocytes % 2.0 % Eosinophils % 0.1 % Basophils % 0.1 % Neutrophils # 7.3 (1.6-8.9) K/mcL Lymphocytes # 0.4 L (0.6-4.6) K/mcL Monocytes # 0.2 (0.0-1.3) K/mcL Eosinophils # 0.0 (0.0-0.6) K/mcL Basophils # 0.0 (0.0-0.2) K/mcL PT 15.2 H (9.4-12.1) Seconds INR 1.4 APTT 29.5 (26.0-36.0) Seconds
[2018-01-06 06:13] LABS: Troponin I < 0.03 ng/mL (< 0.04)
[2018-01-06] MEDS ORDERED: 0.9 % Sodium Chloride 1,000 ML IVC ONE ×2 (06:46→07:23)
[2018-01-06 06:48] LABS: Alanine Aminotransferase 135 Units/L (7-52); Albumin 4.3 g/dL (3.5-5.7); Albumin/Globulin Ratio 1.3 (1.1-2.2); Alkaline Phosphatase 146 Units/L (34-104); Aspartate Amino Transferase 93 Units/L (13-39); BUN/Creatinine Ratio 12 (6-26); Bilirubin,Direct 2.6 mg/dL (0.0-0.2); Bilirubin,Indirect 0.8 mg/dL (0.0-1.2); Bilirubin,Total 3.4 mg/dL (0.3-1.0); Blood Urea Nitrogen 10 mg/dL (6-20); Calcium 9.7 mg/dL (8.6-10.3); Carbon Dioxide 25 mEq/L (23-29); Chloride 103 mEq/L (98-107); Globulin 3.3 g/dL (2.4-3.5); Glucose 140 mg/dL (70-105); Lipase > 1800 Units/L (11-82); Osmolality,Calculated 285 (280-300); Potassium 3.6 mEq/L (3.5-5.1); Sodium 137 mEq/L (136-145); Total Protein 7.6 g/dL (6.4-8.9); eGFR For Non-African Americans > 60 (> 60)
--- NOTE | 2018-01-06 07:27 | Emergency Department Note ---
Disposition Clinical Impression: Epigastric pain Pancreatitis Qualifiers: Chronicity: acute Pancreatitis type: other Acute pancreatitis complication: unspecified Qualified Code(s): K85.80 - Other acute pancreatitis without necrosis or infection Disposition: Admitted As Inpatient Condition: Fair General Adult HPI - General Chief complaint: ED Abdominal Pain Stated complaint: cp Time Seen by Provider: 01/06/18 05:29 Source: patient Mode of arrival: ambulatory Limitations: no limitations Nursing Notes Reviewed: Yes Vital Signs Reviewed: Yes - History of Present Illness HPI Narrative: Refer to all previous notes for history of present illness, physical exam, medical decision-making. Pain Scale: 9 - Related Data Home Medications Medication Instructions Recorded Confirmed Aspirin [Lo-Dose Aspirin EC] 81 mg PO DAILY 09/03/17 01/06/18 Multivit-Min/FA/Lycopen/Lutein [A 1 tab PO DAILY 09/03/17 01/06/18 Thru Z Select Multivit Tab] Levothyroxine [Synthroid] 75 mcg PO DAILY 01/06/18 01/06/18 Previous Rx's Medication Instructions Recorded Omeprazole 20 mg PO DAILY #30 tablet. 09/03/17 Acetaminophen [Tylenol] 650 mg PO Q4HR PRN tablet 09/05/17 HYDROcodone/Acet 5/325 mg [[place] 1 tab PO Q6H PRN 3 Days #6 tab 01/05/18 5-325 mg] Mag Hydrox/Al Hydrox/Simeth 15 ml PO Q6HR #300 udc 01/05/18 [Maalox] Allergies Allergy/AdvReac Type Severity Reaction Status Date / Time No Known Allergies Allergy Verified 04/01/17 10:29 Constitutional: Denies: fever, chills, weakness Eyes: Denies: eye pain, vision change ENT ED: Denies: throat pain, congestion Cardiovascular: Denies: chest pain Respiratory: Denies: dyspnea Gastrointestinal: Reports: abdominal pain, nausea. Denies: vomiting, diarrhea, constipation, hematemesis, melena, hematochezia Genitourinary: Denies: urgency, dysuria Musculoskeletal: Denies: back pain, arthralgia Integumentary: Denies: rash Neurological: Denies: headache Past Medical History - Past Medical History Medical history: Reports: other Surgical history: Reports: cholecystectomy Psychiatric history: Reports: no psych history - Social History Smoking Status: Current every day smoker Smokeless Tobacco Status: No Alcohol use: Reports: none Drug use: Reports: none Physical Exam - General Limitations: no limitations General appearance: alert, in no apparent distress Course Vital Signs Temperature 97.7 F 01/06/18 05:31 Pulse Rate 90 01/06/18 05:31 Respiratory Rate 16 01/06/18 05:31 Blood Pressure 102/66 01/06/18 05:31 O2 Sat by Pulse Oximetry 96 01/06/18 05:31 Temperature 97.7 F 01/06/18 05:31 Pulse Rate 82 01/06/18 09:21 Respiratory Rate 20 01/06/18 09:21 Blood Pressure 129/78 01/06/18 09:21 O2 Sat by Pulse Oximetry 97 01/06/18 09:21 Oxygen Delivery Oxygen Delivery Room Air Medical Decision Making - MDM Narrative Medical decision making narrative: 47-year-old female who is having a return visit to the emergency department. She has a past medical history of chronic pancreatitis. Today her lipase is 1800. We are obtaining liver ultrasound as there is concern for choledocholithiasis as patient has elevated hepatic transaminases with her elevated lipase. Reported that she continue to have small stones after her cholecystectomy. Patient had been given analgesia, IV fluids. I have added an additional liter of normal saline. Patient planned to be admitted to the hospitalist for acute on chronic pancreatitis. We obtained liver US and it did not reveal any acute abnormality. Dr. Belle agreed to accept the patient for admission - Lab Data Result diagrams: 01/06/18 05:37 01/06/18 05:37 Lab Results 01/06/18 01/06/18 01/06/18 Range/Units 05:37 05:37 05:37 WBC 7.9 (4.3-11.1) K/mcL RBC 4.91 (3.82-4.97) M/mcL Hgb 14.3 (11.5-15.4) g/dL Hct 42.0 (35.3-44.9) % MCV 85.5 (83.0-100.0) fL MCH 29.1 (28.0-33.3) pg MCHC 34.0 (31.6-35.5) g/dL RDW 12.4 (11.5-14.5) % Plt Count 208 (140-400) K/mcL MPV 9.8 (9.4-12.4) fL Immature Gran % 0.3 (0-4) % Seg Neutrophils % 93.1 % Lymphocytes % 4.4 % Monocytes % 2.0 % Eosinophils % 0.1 % Basophils % 0.1 % Neutrophils # 7.3 (1.6-8.9) K/mcL Lymphocytes # 0.4 L (0.6-4.6) K/mcL Monocytes # 0.2 (0.0-1.3) K/mcL Eosinophils # 0.0 (0.0-0.6) K/mcL Basophils # 0.0 (0.0-0.2) K/mcL PT 15.2 H (9.4-12.1) Seconds INR 1.4 APTT 29.5 (26.0-36.0) Seconds Sodium 137 (136-145) mEq/L Potassium 3.6 (3.5-5.1) mEq/L Chloride 103 (98-107) mEq/L Carbon Dioxide 25 (23-29) mEq/L BUN 10 (6-20) mg/dL Creatinine 0.84 (0.60-1.20) mg/dL Est GFR ( Amer) > 60 (> 60) Est GFR (Non-Af Amer) > 60 (> 60) BUN/Creatinine Ratio 12 (6-26) Glucose 140 H (70-105) mg/dL Calculated Osmolality 285 (280-300) Lactic Acid (0.5-2.2) mmol/L Calcium 9.7 (8.6-10.3) mg/dL Total Bilirubin 3.4 H (0.3-1.0) mg/dL Direct Bilirubin 2.6 H (0.0-0.2) mg/dL Indirect Bilirubin 0.8 (0.0-1.2) mg/dL AST 93 H (13-39) Units/L ALT 135 H (7-52) Units/L Alkaline Phosphatase 146 H (34-104) Units/L Troponin I < 0.03 (< 0.04) ng/mL Serum Total Protein 7.6 (6.4-8.9) g/dL Albumin 4.3 (3.5-5.7) g/dL Globulin 3.3 (2.4-3.5) g/dL Albumin/Globulin Ratio 1.3 (1.1-2.2) Lipase > 1800 H (11-82) Units/L Urine Color (Yellow) Urine Clarity (Clear) Urine pH (5.0-8.0) pH Units Ur Specific [place] (1.010-1.025) Urine Protein (Neg-Trace) mg/dL Urine Glucose (UA) (Normal) mg/dL Urine Ketones (Negative) mg/dL Urine Blood (Negative) Urine Nitrite (Negative) Urine Bilirubin (Negative) Urine Urobilinogen (Normal) mg/dL Ur Leukocyte Esterase (Negative) Ur Squamous Epith Cells (None-Few) per lpf Ur Culture Indicated? (NO) 01/06/18 01/06/18 Range/Units 07:36 08:12 WBC (4.3-11.1) K/mcL RBC (3.82-4.97) M/mcL Hgb (11.5-15.4) g/dL Hct (35.3-44.9) % MCV (83.0-100.0) fL MCH (28.0-33.3) pg MCHC (31.6-35.5) g/dL RDW (11.5-14.5) % Plt Count (140-400) K/mcL MPV (9.4-12.4) fL Immature Gran % (0-4) % Seg Neutrophils % % Lymphocytes % % Monocytes % % Eosinophils % % Basophils % % Neutrophils # (1.6-8.9) K/mcL Lymphocytes # (0.6-4.6) K/mcL Monocytes # (0.0-1.3) K/mcL Eosinophils # (0.0-0.6) K/mcL Basophils # (0.0-0.2) K/mcL PT (9.4-12.1) Seconds INR APTT (26.0-36.0) Seconds Sodium (136-145) mEq/L Potassium (3.5-5.1) mEq/L Chloride (98-107) mEq/L Carbon Dioxide (23-29) mEq/L BUN (6-20) mg/dL Creatinine (0.60-1.20) mg/dL Est GFR ( Amer) (> 60) Est GFR (Non-Af Amer) (> 60) BUN/Creatinine Ratio (6-26) Glucose (70-105) mg/dL Calculated Osmolality (280-300) Lactic Acid 1.6 (0.5-2.2) mmol/L Calcium (8.6-10.3) mg/dL Total Bilirubin (0.3-1.0) mg/dL Direct Bilirubin (0.0-0.2) mg/dL Indirect Bilirubin (0.0-1.2) mg/dL AST (13-39) Units/L ALT (7-52) Units/L Alkaline Phosphatase (34-104) Units/L Troponin I (< 0.04) ng/mL Serum Total Protein (6.4-8.9) g/dL Albumin (3.5-5.7) g/dL Globulin (2.4-3.5) g/dL Albumin/Globulin Ratio (1.1-2.2) Lipase (11-82) Units/L Urine Color Yellow (Yellow) Urine Clarity Clear (Clear) Urine pH 6.0 (5.0-8.0) pH Units Ur Specific [place] 1.020 (1.010-1.025) Urine Protein 100 H (Neg-Trace) mg/dL Urine Glucose (UA) 100 H (Normal) mg/dL Urine Ketones Negative (Negative) mg/dL Urine Blood Negative (Negative) Urine Nitrite Negative (Negative) Urine Bilirubin Moderate H (Negative) Urine Urobilinogen Normal (Normal) mg/dL Ur Leukocyte Esterase Negative (Negative) Ur Squamous Epith Cells Few (None-Few) per lpf Ur Culture Indicated? NO (NO) - Radiology Data Radiology results reviewed: Yes I reviewed the patient's radiology results. Attestation Statement - Attestation Attestation: I examined this patient and my medical decision-making was reviewed with the Resident Physician, Dr. Childs. I agree with the documented findings, disposition and treatment plan as described except to the extent set forth below. Patient is a 47-year-old white female who was originally seen by Dr. Ward in the pull worker team signed out to us after initial evaluation and laboratory orders have been completed and patient was awaiting results of an ultrasound for final disposition. The plan at time of sign out was to admit the patient for acute pancreatitis but there were concerns about whether or not she may require ERCP or further testing by GI services so at the time of sign out and right upper quadrant ultrasound was pending. Patient is hemodynamically stable , resting comfortably at bedside with no complaints at this time. Patient initially presented with epigastric pain nausea and vomiting. Please refer to Dr. Ward's note for initial evaluation and assessment, initial laboratory evaluation and CT imaging. I agree with patient's physical exam findings as documented. Vital signs are stable. Patient's ultrasound results was unremarkable. There is no evidence of obstruction. Patient will be admitted to the hospitalist service for further evaluation and management of acute pancreatitis.
[2018-01-06 07:45] LABS: Bilirubin,Urine Moderate (Negative); Blood,Urine Negative (Negative); Clarity,Urine Clear (Clear); Color,Urine Yellow (Yellow); Glucose,Urine (UA) 100 mg/dL (Normal); Ketones,Urine Negative (Negative); Leukocyte Esterase,Urine Negative (Negative); Nitrite,Urine Negative (Negative); Protein,Urine 100 mg/dL (Neg-Trace); Urobilinogen,Urine Normal (Normal)
[2018-01-06 07:57] LABS: Squamous Epithelial Cell,Urine Few per lpf (None-Few)
[2018-01-06] MEDS ORDERED: Naloxone 0.4 MG/ML INJ IVP PRN (10:27)
--- NOTE | 2018-01-06 10:32 | Internal Med History&Physical ---
Date of Encounter: 01/06/18 Time of Encounter: 10:00 Internal Medicine - H&P: HPI Chief complaint: Abdominal pain, nausea Admitted From: Emergency Dept Plans for Post Hospital Care: Home History of present illness: Ms. Dickson is a 47 year old female patient with history of prior episodes of pancreatitis presented to the ER with complaints of acute abdominal pain. Pain is located in the epigastric region. Nonradiating. Pain began yesterday morning and it has progressively gotten worse. She came to the ER yesterday and at that time had a CT scan of abdomen and pelvis done which was negative for any acute process. Her lipase was also normal then. She was therefore sent home. She returned to the ER again this morning because she had pain got worse. She denies any diarrhea. No hematemesis or melena. In the ER she received multiple doses of intravenous narcotic medications with Only slight improvement in her pain. She reports that her last episode of pancreatitis was in September of this year. No clear cause of pancreatitis was identified then. Patient is already status post cholecystectomy. Past Med Surg Social Fam HX - Past Medical History Attestation: Yes The following information was validated with the patient. Source: patient Medical history: other Additional medical history: pancreatitis. hyperthyroidism Psychiatric history: no psych history - Past Surgical History Surgical History: cholecystectomy Additional surgical history: tubal ligation - Social History Smoking Status: Current every day smoker Packs per day: 0.5 PPD Smokeless Tobacco Status: No Alcohol use: none Drug use: none Internal Medicine - H&P: Meds Aspirin [Lo-Dose Aspirin EC] 81 mg PO DAILY 09/03/17 [History] Multivit-Min/FA/Lycopen/Lutein [A Thru Z Select Multivit Tab] 1 tab PO DAILY [History] Omeprazole 20 mg PO DAILY #30 tablet. 09/03/17 [Rx] Acetaminophen [Tylenol] 650 mg PO Q4HR PRN tablet 09/05/17 [Rx] HYDROcodone/Acet 5/325 mg [[place]ocoa 5-325 mg] 1 tab PO Q6H PRN 3 Days #6 tab [Rx] Mag Hydrox/Al Hydrox/Simeth [Maalox] 15 ml PO Q6HR #300 udc 01/05/18 [Rx] Levothyroxine [Synthroid] 75 mcg PO DAILY 01/06/18 [History] 3 Allergy/AdvReac Type Severity Reaction Status Date / Time No Known Allergies Allergy Verified 04/01/17 10:29 All Systems PM: A 10-system review of systems was performed and is negative for pertinent findings except as documented above in the HPI. - Constitutional Constitutional: malaise, no chills, no fever(s), no night sweats - EENT Eyes: no change in vision, no discharge, no pain, no photophobia Ears: no ear discharge, no ear pain, no tinnitus Nose, mouth and throat: no dysphagia, no nasal discharge, no neck pain, no sore throat - Cardiovascular Cardiovascular ROS IM: no chest pain, no diaphoresis, no dyspnea, no lightheadedness, no palpitations, no syncope - Respiratory Respiratory: no cough, no dyspnea, no wheezing, no excessive phlegm production - Gastrointestinal Gastrointestinal: abdominal pain, nausea, vomiting, no diarrhea, no hematemesis , no hematochezia, no melena - Genitourinary Genitourinary: no change in urinary stream, no dysuria, no flank pain, no hematuria - Musculoskeletal Musculoskeletal ROS IM: no numbness, no tingling - Integumentary Integumentary IM: no rash, no unusual bruising - Neurological Neurological ROS: no confusion, no convulsions, no focal weakness, no numbness, no tingling, no tremor(s) - Hematologic/Lymphatic Hematologic/Lymphatic: no easy bruising - Constitutional Vitals: Temp Pulse Resp BP Pulse Ox 97.6 F 69 19 144/76 98 01/06/18 10:26 01/06/18 10:26 01/06/18 10:26 01/06/18 10:26 01/06/18 10:26 General appearance: Present: cooperative, A&O X 3, pleasant, answers questions appropriately Exam: Moderate distress - Neck Neck exam general surgery: Present: supple, trachea midline. Absent: lymphadenopathy - Respiratory Respiratory exam: Present: CTAB. Absent: accessory muscle use, rales, rhonchi, wheezes - Cardiovascular Cardiovascular exam: Present: RRR, +S1, +S2. Absent: diastolic murmur, gallop, rubs, systolic murmur - GI/Abdominal GI/Abdominal exam: Present: normal bowel sounds, soft, tenderness, no peritoneal signs. Absent: distended - Extremities Exam Extremities exam: Present: warm, radial pulses palpable and symmetrical. Absent : calf tenderness, cyanotic, pedal edema - Neurological Exam Neurological exam: Present: CN II-XII intact, oriented X3, no focal deficits, strengths equal and symetr throughout. Absent: facial droop, speech deficit - Skin Skin exam: Present: dry, intact Internal Med - H&P Results - Labs CBC & Chem 7: 01/06/18 05:37 01/06/18 05:37 - Impressions Impressions Chest X-Ray 01/06/18 05:32 IMPRESSION: No acute cardiopulmonary disease. D/ / Jay De León MD / Jay De León MD Interpreting Provider: Jay De León MD Liver Ultrasound 01/06/18 07:01 IMPRESSION: Mild diffuse increased echotexture within the liver suggestive of hepatic steatosis. Intra and extrahepatic ductal dilation is identified, though no focal obstructing stone is seen. This ductal dilation may be related to prior cholecystectomy. Cholecystectomy. D/ / Som Caldwell MD / Som Caldwell MD Interpreting Provider: Som Caldwell MD - Assessment and plan (1) Pancreatitis Current Visit: Yes Status: Suspected Assessment and plan: Patient presenting with acute pancreatitis. Lipase was greater than 1800. Etiology uncertain. She does have slight elevation in liver enzymes. Possibly also from biliary microlithiasis. Consider MRCP if symptoms do not improve. Patient is already status post cholecystectomy. Not on any medications that are known to cause pancreatitis. Moderate risk for complications. IV fluids. Symptoms controlled with pain medications and antiemetics. Keep nothing by mouth. Qualifiers: Chronicity: acute Pancreatitis type: idiopathic Acute pancreatitis complication: no infection or necrosis Qualified Code(s): K85.00 - Idiopathic acute pancreatitis without necrosis or infection (2) GERD (gastroesophageal reflux disease) Current Visit: Yes Status: Chronic Assessment and plan: Continue PPI. Qualifiers: Esophagitis presence: esophagitis presence not specified Qualified Code(s) : K21.9 - Gastro-esophageal reflux disease without esophagitis - Time Spent With Patient Total time spent is greater than 50% in coordination of care (as documented) at patient's floor/unit and/or counseling patient:
[2018-01-06] MEDS ORDERED: Acetaminophen 325 MG TABLET PO PRN (10:41)
[2018-01-06] MEDS ORDERED: Ketorolac 15 MG/ML VIAL IVP PRN (10:41)
[2018-01-06] MEDS ORDERED: OXYCODONE Oral CONC 10 MG/0.5 ML ORAL.SYG SL PRN (10:41)
[2018-01-06] MEDS: Ringers Solution, Lactated 1,000 ML IVC SCH ×2 (13:52→22:31)
[2018-01-06] MEDS: *HR* Heparin 5,000 UNIT/ML VIAL SQ SCH (18:12)
[2018-01-06] MEDS: *HR* Promethazine 25 MG/ML VIAL IVP PRN (18:12)
[2018-01-06] MEDS: OXYCODONE Oral CONC 10 MG/0.5 ML ORAL.SYG SL PRN (18:12)
[2018-01-07 04:55] LABS: Basophils % 0.1 %; Eosinophils # 0.1 K/mcL (0.0-0.6); Eosinophils % 0.8 %; Hematocrit 38.4 % (35.3-44.9); Immature Granulocytes % 0.4 % (0-4); Lymphocytes # 0.9 K/mcL (0.6-4.6); Lymphocytes % 12.2 %; Mean Corpuscular HGB Conc 32.8 g/dL (31.6-35.5); Mean Corpuscular Hemoglobin 28.6 pg (28.0-33.3); Mean Corpuscular Volume 87.3 fL (83.0-100.0); Mean Platelet Volume 10.2 fL (9.4-12.4); Monocytes # 0.3 K/mcL (0.0-1.3); Monocytes % 4.6 %; Neutrophils # 5.9 K/mcL (1.6-8.9); Platelet Count 170 K/mcL (140-400); Red Cell Distribution Width 12.9 % (11.5-14.5); Segmented Neutrophils % 81.9 %
[2018-01-07 05:12] LABS: Hemoglobin 12.6 g/dL (11.5-15.4)
[2018-01-07 05:44] LABS: BUN/Creatinine Ratio 16 (6-26); Blood Urea Nitrogen 11 mg/dL (6-20); Calcium 9.1 mg/dL (8.6-10.3); Carbon Dioxide 25 mEq/L (23-29); Chloride 105 mEq/L (98-107); Glucose 75 mg/dL (70-105); Lipase 1703 Units/L (11-82); Osmolality,Calculated 282 (280-300); Potassium 3.9 mEq/L (3.5-5.1); Sodium 137 mEq/L (136-145); eGFR For Non-African Americans > 60 (> 60)
[2018-01-07] MEDS: Ringers Solution, Lactated 1,000 ML IVC SCH ×3 (06:08→17:05)
[2018-01-07] MEDS: *HR* Heparin 5,000 UNIT/ML VIAL SQ SCH ×2 (06:08→17:04)
[2018-01-07] MEDS: Pantoprazole 40 MG VIAL IVP SCH (07:38)
[2018-01-07] MEDS: Aspirin Enteric Coated 81 MG Tablet PO SCH (07:49)
[2018-01-07 10:50] LABS: Albumin 3.5 g/dL (3.5-5.7); Albumin/Globulin Ratio 1.1 (1.1-2.2); Bilirubin,Direct 1.5 mg/dL (0.0-0.2); Bilirubin,Indirect 0.7 mg/dL (0.0-1.2); Bilirubin,Total 2.2 mg/dL (0.3-1.0); Globulin 3.3 g/dL (2.4-3.5); Total Protein 6.8 g/dL (6.4-8.9)
--- NOTE | 2018-01-07 11:30 | Gastroenterology Consult Note ---
<Roya Ames - Last Filed: 01/07/18 11:44> Date of Encounter: 01/07/18 Time of Encounter: 11:27 - Assessment and plan (1) Abdominal pain Current Visit: No Status: Acute Assessment and plan: Abdominal pain likely acute pancreatitis secondary to choledocholithiasis. Patient is status post cholecystectomy. -elevated totally bilirubin 3.4, direct bilirubin 2.6 -AST 93, ALT 135 -lipase>1800 -alkaline phosphatase 146 -Liver ultrasound demonstrated hepatic steatosis, intra and extra hepatic duct dilation with common bile duct dilated measuring 1.35 cm Plan: -will plan for ERCP today, patient is agreeable to procedure -keep NPO -Zofran for nausea -pain control Qualifiers: Abdominal location: epigastric Qualified Code(s): R10.13 - Epigastric pain (2) Pancreatitis Current Visit: Yes Status: Suspected Assessment and plan: Acute pancreatitis most likely secondary to choledocholithiasis. Lipase >1800 elevated totally bilirubin 3.4, direct bilirubin 2.6 calcium WNL Liver ultrasound demonstrated hepatic steatosis, intra and extra hepatic duct dilation with common bile duct dilated measuring 1.35 cm Plan as above Qualifiers: Chronicity: acute Pancreatitis type: idiopathic Acute pancreatitis complication: no infection or necrosis Qualified Code(s): K85.00 - Idiopathic acute pancreatitis without necrosis or infection - Time Spent With Patient Total time spent is greater than 50% in coordination of care (as documented) at patient's floor/unit and/or counseling patient: GI History of Present Illness - Data of Consult Consult date: 01/07/18 Requesting Physician: Charlene Villagran MD - Consult Narrative Reason for consult: Elevated LFTs History of present illness: Ms. Dickson is a 47 year old female with past medical history of thyroid disease presented to [facility] complaining of abdominal pain. Gastroenterology was consulted due to elevated LFTs. Patient reported that her abdominal pain started on Thursday and she was then evaluated in the ED and then sent home. Thursday at about 4 AM she returned to the ED due to continued and worsening epigastric abdominal pain that was sharp in nature and constant. She stated that nothing improved or worsen the pain. She had associated fever, nausea, headache. She denied chills, melena, hematechezia, hematemesis, vomiting, chest pain, shortness of breath. She reported having an episode of acute pancreatitis in the past. She had a cholecystectomy in 2001. She is the current smoker of half pack per day. She denies alcohol and drug use. Workup is significant for elevated totally bilirubin 3.4, direct bilirubin 2.6, AST 93, ALT 135, alkaline phosphatase 146, lipase >1800. Liver ultrasound demonstrated hepatic steatosis, intra and extra hepatic duct dilation with common bile duct dilated measuring 1.35 cm Past Med Surg Social Fam HX - Past Medical History Attestation: Yes The following information was validated with the patient. Source: patient Medical history: thyroid disease, other Additional medical history: pancreatitis. hyperthyroidism Psychiatric history: no psych history - Past Surgical History Surgical History: cholecystectomy Additional surgical history: tubal ligation - Social History Smoking Status: Current every day smoker Packs per day: 0.5 PPD Smokeless Tobacco Status: No Alcohol use: none Drug use: none - Family History Father Hx Family Cardiac Disorders: Yes (Myocardial infarction) Hx Family Neurologic Disorders: Yes (Alzhemiers) Mother Hx Family Cardiac Disorders: Yes Hx Family Endocrine Disorder: Yes (Hyperthyroidism) Hx Family Musculoskeletal Disorders: Yes (Osteoporosis) - Gastrointestinal Gastrointestinal: Present: abdominal pain, nausea. Absent: constipation, diarrhea, hematemesis, hematochezia, melena, vomiting - Constitutional Constitutional: no anorexia, no fatigue - EENT Nose, mouth and throat: Absent: dysphagia - Cardiovascular Cardiovascular ROS: Absent: chest pain, palpitations - Respiratory Respiratory IM: Absent: cough, dyspnea - Genitourinary Genitourinary: Absent: change in color - Neurological ROS Neurological GI: Present: headache(s). Absent: confusion - Hematologic/Lymphatic Hematologic/Lymphatic pediatric: Absent: easy bleeding - Musculoskeletal Musculoskeletal ROS GI: Absent: back pain - Integumentary Integumentary GI: Absent: jaundice, pruritis, rash - Psychiatric ROS Psychiatric GI: Absent: depression - Endocrine Endocrine IM: Absent: fatigue - Constitutional Vitals: Temp Pulse Resp BP Pulse Ox 98.3 F 89 17 118/77 94 01/07/18 11:25 01/07/18 11:25 01/07/18 11:25 01/07/18 11:25 01/07/18 11:25 Exam: Gen.: Vitals noted. No acute distress. AAOx3 HEENT: oropharynx clear, Normocephalic, atraumatic Cardiac: RRR, no murmur, +S1/S2 Pulmonary: CTA bilaterally, no wheezes, rales or rhonchi, equal chest expansion Abdomen: soft, epigastric and RUQ tender, Bowel sounds noted, no guarding MSK: ROM intact, no joint swelling noted Extremities: no BLE edema, nontender calf, no cyanosis or clubbing Neuro: A&Ox3, moves all extremities, no focal deficits Psych: Appropriate mood and behavior Results - Labs CBC & Chem 7: 01/07/18 04:30 01/07/18 04:30 Labs: Last Result Calcium 9.1 mg/dL (8.6-10.3) 01/07/18 04:30 Troponin I < 0.03 ng/mL (< 0.04) 01/06/18 05:37 Entire Visit Hgb 12.6 g/dL (11.5-15.4) D 01/07/18 04:30 Hct 38.4 % (35.3-44.9) 01/07/18 04:30 PT 15.2 Seconds (9.4-12.1) H 01/06/18 05:37 Total Bilirubin 2.2 mg/dL (0.3-1.0) H 01/07/18 10:16 AST 42 Units/L (13-39) H 01/07/18 10:16 ALT 77 Units/L (7-52) H 01/07/18 10:16 Lipase 1703 Units/L (11-82) H 01/07/18 04:30 - ABG ABG results: PT/INR, D-dimer PT 15.2 Seconds (9.4-12.1) H 01/06/18 05:37 Consult Discharge Plan - Plan Referrals: Chantal Arteaga, [facility] [Primary Care Provider] - <Nena Nava - Last Filed: 01/07/18 14:08> Date of Encounter: 01/07/18 Time of Encounter: 13:00 - Time Spent With Patient Total time spent is greater than 50% in coordination of care (as documented) at patient's floor/unit and/or counseling patient: GI History of Present Illness - Data of Consult Requesting Physician: Charlene Villagran MD - Consult Narrative History of present illness: Ms. Dickson is a 47 year old female - Constitutional Vitals: Temp Pulse Resp BP Pulse Ox 98.4 F 85 18 133/79 94 01/07/18 13:29 01/07/18 13:29 01/07/18 13:29 01/07/18 13:29 01/07/18 13:29 Results - Labs CBC & Chem 7: 01/07/18 04:30 01/07/18 04:30 Labs: Last Result Calcium 9.1 mg/dL (8.6-10.3) 01/07/18 04:30 Troponin I < 0.03 ng/mL (< 0.04) 01/06/18 05:37 Entire Visit Hgb 12.6 g/dL (11.5-15.4) D 01/07/18 04:30 Hct 38.4 % (35.3-44.9) 01/07/18 04:30 PT 15.2 Seconds (9.4-12.1) H 01/06/18 05:37 Total Bilirubin 2.2 mg/dL (0.3-1.0) H 01/07/18 10:16 AST 42 Units/L (13-39) H 01/07/18 10:16 ALT 77 Units/L (7-52) H 01/07/18 10:16 Lipase 1703 Units/L (11-82) H 01/07/18 04:30 - ABG ABG results: PT/INR, D-dimer PT 15.2 Seconds (9.4-12.1) H 01/06/18 05:37 - Attending Attestation I examined this patient and my medical decision-making was reviewed with the Resident Physician. I agree with the documented findings, disposition and treatment plan as described except to the extent set forth below. Pt seen with Dr Ames. Patient does complain of some epigastric discomfort. Examination abdomen is soft but does has tenderness in the epigastric area. Assessment: Patient with a pancreatitis recurrent with elevated LFTs and also very dilated CBD concerning for a CBD stone gallbladder is already out. Recommendation: Patient to have ERCP with sphincterotomy and sweeping of the duct to make sure she does not have any stone
[2018-01-07 12:23] LABS: Hepatitis B Surface Antigen Nonreactive (Nonreactive)
--- NOTE | 2018-01-07 12:42 | Anesthesia Evaluation PreOp ---
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 Admitted with abd. pain and slightly elevated LFTs.) Anesthesia History: No Prior Anesthetic Complications, Past Anesthesia Alcohol Use: none Drug use: none Medications and Allergies Aspirin [Lo-Dose Aspirin EC] 81 mg PO DAILY 09/03/17 [History] Multivit-Min/FA/Lycopen/Lutein [A Thru Z Select Multivit Tab] 1 tab PO DAILY [History] Omeprazole 20 mg PO DAILY #30 tablet. 09/03/17 [Rx] Acetaminophen [Tylenol] 650 mg PO Q4HR PRN tablet 09/05/17 [Rx] HYDROcodone/Acet 5/325 mg [Bend 5-325 mg] 1 tab PO Q6H PRN 3 Days #6 tab [Rx] Mag Hydrox/Al Hydrox/Simeth [Maalox] 15 ml PO Q6HR #300 udc 01/05/18 [Rx] Levothyroxine [Synthroid] 75 mcg PO DAILY 01/06/18 [History] 3 Allergy/AdvReac Type Severity Reaction Status Date / Time No Known Allergies Allergy Verified 04/01/17 10:29 - Meds/Allergy Pre-op Review Medications Reviewed: Yes Allergies Reviewed: Yes Beta Blockers on Current Med List: No Anesthesia Results - Labs 01/07/18 04:30 01/07/18 04:30 - Imaging EKG: report reviewed (sinus rhythm) Anesthesia Exam Selected Entries 01/07/18 11:25 Temperature 98.3 F Pulse Rate 89 Respiratory Rate 17 Blood Pressure 118/77 O2 Sat by Pulse Oximetry 94 Weight: 84 kg NPO (# of Hours): over 8 hours - HEENT Pupil (Motor): Pupils equal Mallampati: II Teeth: Edentulous Oral Opening: Greater than 3 - Cardiac Rhythm: Regular Murmur: None - Pulmonary Breath Sounds: bilateral Clear Respiratory Effort: Symmetrical Anesthesia Assess/Plan ASA Score: 2 Modified Alexis Scale for Level of Consciousness: Cooperative, oriented, and tranquil Anesthetic Plan: General Monitoring Plan: Standard Monitors Recovery Plan: PACU (Discussed GA, risks. Agreed to proceed.)
[2018-01-07] MEDS ORDERED: *HR* Propofol 200 MG/20 ML VIAL IVP ONE (12:43)
[2018-01-07] MEDS ORDERED: Dexamethasone 4 MG/ML VIAL ONE ×2 (12:44→13:17)
[2018-01-07] MEDS ORDERED: *HR* Succinylcholine 200 MG/10 ML VIAL IVP ONE (12:44)
[2018-01-07] MEDS ORDERED: Lidocaine -MPF 2% 2 ML VIAL ONE (12:44)
[2018-01-07] MEDS ORDERED: Lidocaine -MPF 4% 5 ML AMPUL ONE (12:44)
[2018-01-07] MEDS ORDERED: Ondansetron 4 MG/2 ML VIAL ONE (12:44)
[2018-01-07] MEDS ORDERED: Ringers Solution, Lactated 1,000 ML IVC SCH (13:45)
--- NOTE | 2018-01-07 14:12 | Electrocardiograph Report ---
[place] [id number] Test Date: 2018-01-06 Pat Name: Felipa Dickson Department: EXAM2 Room: 2A Gender: Psychiatry Resident: : 1970 Requested By: Handy Jenkins Order Number: [id number] Reading MD: Diana Adams Measurements Intervals [place] Rate: 87 P: 68 ID: [id number] QRS: 40 QRSD: 97 T: 62 QT: 384 QTc: 462 Interpretive Statements Normal sinus rhythm Electronically Signed On 01-07-2018 14:10:01 EDT by Diana Adams
[2018-01-07] MEDS ORDERED: Indomethacin 50 MG SUPP.RECT RC ONE (14:13)
[2018-01-07] MEDS ORDERED: *HR* Meperidine 25 MG/ML SYRINGE IVP PRN (14:24)
[2018-01-07] MEDS ORDERED: *HR* OxyCODONE Immed Rel 5 MG TABLET PO PRN (14:24)
[2018-01-07] MEDS ORDERED: *HR* Promethazine 25 MG/ML VIAL IVP PRN (14:24)
--- NOTE | 2018-01-07 15:13 | Anesthesia Evaluation Post Op ---
Date of Encounter: 01/07/18 Time of Encounter: 15:20 - Vital Signs Vital Signs: Selected Entries 01/07/18 13:29 Temperature 98.4 F Pulse Rate 85 Respiratory Rate 18 Blood Pressure 133/79 O2 Sat by Pulse Oximetry 94 - Lungs Lungs: Clear Ascult./Percussion - Airway Airway: Non-obstructed - Cardiovascular Regular Rate - Mental Status Mental Status: Alert & Oriented, Answers Appropriately - Nausea Vomiting Nausea Vomiting: Not Present - Hydration Hydration: NPO - Discharge PostOp Status: Transfer Patient to floor
[2018-01-07] MEDS: *HR* Promethazine 25 MG/ML VIAL IVP PRN (17:05)
--- NOTE | 2018-01-07 18:52 | Internal Med Progress Note ---
Hospitalist Progress Note - Encounter Date of Encounter: 01/07/18 Time of Encounter: 19:08 - Subjective Interval History: Pt's mother at bedside. States she has some nausea. LUQ/epigastric pain has improved. Denies vomiting and requesting something to eat. Denies fever or chills. Denies CP or SOB. - Exam Vitals: Temp Pulse Resp BP Pulse Ox 97.9 F 83 16 128/79 93 01/07/18 16:21 01/07/18 16:34 01/07/18 16:34 01/07/18 16:34 01/07/18 16:21 Exam: General appearance: Present: cooperative, A&O X 3, pleasant, answers questions appropriately Exam: Moderate distress - Neck Neck exam general surgery: Present: supple, trachea midline. Absent: lymphadenopathy - Respiratory Respiratory exam: Present: CTAB. Absent: accessory muscle use, rales, rhonchi, wheezes - Cardiovascular Cardiovascular exam: Present: RRR, +S1, +S2. Absent: diastolic murmur, gallop, rubs, systolic murmur - GI/Abdominal GI/Abdominal exam: Present: normal bowel sounds, soft, tenderness, no peritoneal signs. Absent: distended - Extremities Exam Extremities exam: Present: warm, radial pulses palpable and symmetrical. Absent : calf tenderness, cyanotic, pedal edema - Neurological Exam Neurological exam: Present: CN II-XII intact, oriented X3, no focal deficits, strengths equal and symetr throughout. Absent: facial droop, speech deficit - Skin Skin exam: Present: dry, intact - Assessment and Plan (1) Common bile duct calculus Current Visit: Yes Status: Acute Assessment and Plan: Seen by GI and s/p ERCP 2 stones removed. (2) Elevated transaminase level Current Visit: Yes Status: Acute Assessment and Plan: Will monitor daily. trended down today (3) Pancreatitis Current Visit: Yes Status: Suspected Assessment and Plan: Lipase dwon from >1800 to 1703. Will continue to trend. s/p ERCP by GI and 2 stones removed. Py states abdominal pain improved and requesting some thing to eat. (4) Dehydration Current Visit: No Status: Acute Assessment and Plan: Given IVF and doing better. (5) Epigastric pain Current Visit: Yes Status: Acute Assessment and Plan: improving. Will continue to trend lipase. (6) GERD (gastroesophageal reflux disease) Current Visit: Yes Status: Chronic Assessment and Plan: Protonix (7) Tobacco abuse Current Visit: No Status: Chronic Assessment and Plan: Cessation strongly advised. DVT Prophylaxis: Heparin - Summary of Assessment and Plan Summary of Assessment and Plan: Ms. Dickson is a 47 year old female patient with history of prior episodes of pancreatitis presented to the ER with complaints of acute abdominal pain. Pain is located in the epigastric region. Nonradiating. Pain began yesterday morning and it has progressively gotten worse. She came to the ER yesterday and at that time had a CT scan of abdomen and pelvis done which was negative for any acute process. Her lipase was also normal then. She was therefore sent home. She returned to the ER again this morning because she had pain got worse. She denies any diarrhea. No hematemesis or melena. In the ER she received multiple doses of intravenous narcotic medications with Only slight improvement in her pain. She reports that her last episode of pancreatitis was in September of this year. No clear cause of pancreatitis was identified then. Patient is already status post cholecystectomy. - Time Spent with Patient Total time spent is greater than 50% in coordination of care (as documented) at patient's floor/unit and/or counseling patient: less than 15 minutes Plan of Care Discussed with: patient Internal Medicine: Result - Labs CBC & Chem 7: 01/07/18 04:30 01/07/18 04:30 Labs: Liver Function 01/07/18 Range/Units 10:16 Total Bilirubin 2.2 H (0.3-1.0) mg/dL Direct Bilirubin 1.5 H (0.0-0.2) mg/dL AST 42 H (13-39) Units/L ALT 77 H (7-52) Units/L Alkaline Phosphatase 140 H (34-104) Units/L Albumin 3.5 (3.5-5.7) g/dL - ABG Interpretation ABG results: PT/INR, D-dimer PT 15.2 Seconds (9.4-12.1) H 01/06/18 05:37 Consult Discharge Plan - Plan Referrals: Chantal Arteaga, [employer] [Primary Care Provider] - (3) Pancreatitis Qualifiers: Chronicity: acute Pancreatitis type: idiopathic Acute pancreatitis complication: no infection or necrosis Qualified Code(s): K85.00 - Idiopathic acute pancreatitis without necrosis or infection (6) GERD (gastroesophageal reflux disease) Qualifiers: Esophagitis presence: esophagitis presence not specified Qualified Code(s): K21.9 - Gastro-esophageal reflux disease without esophagitis
[2018-01-08] MEDS: Ringers Solution, Lactated 1,000 ML IVC SCH ×4 (02:12→18:59)
[2018-01-08 03:07] LABS: Hepatitis A Antibody IgM Nonreactive (Nonreactive); Hepatitis B Core IgM Nonreactive (Nonreactive); Hepatitis C Virus Antibody Nonreactive (Nonreactive)
[2018-01-08] MEDS: *HR* Heparin 5,000 UNIT/ML VIAL SQ SCH ×2 (06:29→17:49)
[2018-01-08] MEDS: Aspirin Enteric Coated 81 MG Tablet PO SCH (08:36)
[2018-01-08] MEDS: Pantoprazole 40 MG VIAL IVP SCH (08:36)
[2018-01-08 10:15] LABS: Hematocrit 39.2 % (35.3-44.9); Hemoglobin 12.4 g/dL (11.5-15.4); Immature Granulocytes % 0.5 % (0-4); Mean Corpuscular HGB Conc 31.6 g/dL (31.6-35.5); Mean Corpuscular Volume 91.6 fL (83.0-100.0); Mean Platelet Volume 10.3 fL (9.4-12.4); Platelet Count 189 K/mcL (140-400); Red Blood Count 4.28 M/mcL (3.82-4.97); Red Cell Distribution Width 12.8 % (11.5-14.5); Segmented Neutrophils % 84.9 %
[2018-01-08 10:16] LABS: Basophils % 0.1 %; Lymphocytes # 0.9 K/mcL (0.6-4.6); Lymphocytes % 11.5 %; Monocytes # 0.2 K/mcL (0.0-1.3); Neutrophils # 6.5 K/mcL (1.6-8.9)
[2018-01-08 10:39] LABS: BUN/Creatinine Ratio 19 (6-26); Blood Urea Nitrogen 12 mg/dL (6-20); Calcium 9.1 mg/dL (8.6-10.3); Carbon Dioxide 26 mEq/L (23-29); Chloride 107 mEq/L (98-107); Glucose 187 mg/dL (70-105); Lipase 203 Units/L (11-82); Osmolality,Calculated 295 (280-300); Potassium 3.7 mEq/L (3.5-5.1); Sodium 140 mEq/L (136-145); eGFR For Non-African Americans > 60 (> 60)
[2018-01-08] MEDS: OXYCODONE Oral CONC 10 MG/0.5 ML ORAL.SYG SL PRN (15:39)
[2018-01-08] MEDS: *HR* Promethazine 25 MG/ML VIAL IVP PRN (16:57)
--- NOTE | 2018-01-08 18:19 | Internal Med Progress Note ---
Hospitalist Progress Note - Encounter Date of Encounter: 01/08/18 Time of Encounter: 18:16 - Subjective Interval History: Pt states symptoms resolved. LUQ/epigastric pain has improved. Denies vomiting and requesting something to eat. Denies fever or chills. Denies CP or SOB. - Exam Vitals: Temp Pulse Resp BP Pulse Ox 98.1 F 64 16 124/77 94 01/08/18 15:42 01/08/18 15:42 01/08/18 15:42 01/08/18 15:42 01/08/18 15:42 Exam: General appearance: Present: cooperative, A&O X 3, pleasant, answers questions appropriately Exam: Moderate distress - Neck Neck exam general surgery: Present: supple, trachea midline. Absent: lymphadenopathy - Respiratory Respiratory exam: Present: CTAB. Absent: accessory muscle use, rales, rhonchi, wheezes - Cardiovascular Cardiovascular exam: Present: RRR, +S1, +S2. Absent: diastolic murmur, gallop, rubs, systolic murmur - GI/Abdominal GI/Abdominal exam: Present: normal bowel sounds, soft, tenderness, no peritoneal signs. Absent: distended - Extremities Exam Extremities exam: Present: warm, radial pulses palpable and symmetrical. Absent : calf tenderness, cyanotic, pedal edema - Neurological Exam Neurological exam: Present: CN II-XII intact, oriented X3, no focal deficits, strengths equal and symetr throughout. Absent: facial droop, speech deficit - Skin Skin exam: Present: dry, intact - Assessment and Plan (1) Elevated transaminase level Current Visit: Yes Status: Acute Assessment and Plan: Will monitor daily. trended down today to 203 from >1800. Advancing diet and if tolerate and ok with GI , possible DC in am. (2) Pancreatitis Current Visit: Yes Status: Suspected Assessment and Plan: Lipase dwon from >1800 to 1703 to 203. Will continue to trend. s/p ERCP by GI and 2 stones removed. Pt states abdominal pain improved and requesting some thing to eat. Diet advanced and if tolerates possible DC 01/09/2018 (3) GERD (gastroesophageal reflux disease) Current Visit: Yes Status: Chronic Assessment and Plan: Continue PPI. (4) Dehydration Current Visit: No Status: Acute Assessment and Plan: Protonix (5) Tobacco abuse Current Visit: No Status: Chronic Assessment and Plan: Cessation strongly advised. (6) Epigastric pain Current Visit: Yes Status: Acute (7) Common bile duct calculus Current Visit: Yes Status: Acute Assessment and Plan: Seen by GI and s/p ERCP 2 stones removed. DVT Prophylaxis: Heparin - Summary of Assessment and Plan Summary of Assessment and Plan: Ms. Dickson is a 47 year old female patient with history of prior episodes of pancreatitis presented to the ER with complaints of acute abdominal pain. Pain is located in the epigastric region. Nonradiating. Pain began yesterday morning and it has progressively gotten worse. She came to the ER yesterday and at that time had a CT scan of abdomen and pelvis done which was negative for any acute process. Her lipase was also normal then. She was therefore sent home. She returned to the ER again this morning because she had pain got worse. She denies any diarrhea. No hematemesis or melena. In the ER she received multiple doses of intravenous narcotic medications with Only slight improvement in her pain. She reports that her last episode of pancreatitis was in September of this year. No clear cause of pancreatitis was identified then. Patient is already status post cholecystectomy. - Time Spent with Patient Total time spent is greater than 50% in coordination of care (as documented) at patient's floor/unit and/or counseling patient: less than 15 minutes Plan of Care Discussed with: patient Internal Medicine: Result - Labs CBC & Chem 7: 01/08/18 10:02 01/08/18 10:02 Labs: Short CBC 01/08/18 Range/Units 10:02 WBC 7.6 (4.3-11.1) K/mcL Hgb 12.4 (11.5-15.4) g/dL Hct 39.2 (35.3-44.9) % Plt Count 189 (140-400) K/mcL Neutrophils # 6.5 (1.6-8.9) K/mcL BMP 01/08/18 10:02 Sodium 140 Potassium 3.7 Chloride 107 Carbon Dioxide 26 BUN 12 Creatinine 0.62 Glucose 187 H Calcium 9.1 - ABG Interpretation ABG results: PT/INR, D-dimer PT 15.2 Seconds (9.4-12.1) H 01/06/18 05:37 Consult Discharge Plan - Plan Referrals: Chantal Arteaga, DENTAL LAB TECHNICIAN [Primary Care Provider] - 01/12/18 10:30 am (Follow-up as scheduled. ) (2) Pancreatitis Qualifiers: Chronicity: acute Pancreatitis type: idiopathic Acute pancreatitis complication: no infection or necrosis Qualified Code(s): K85.00 - Idiopathic acute pancreatitis without necrosis or infection (3) GERD (gastroesophageal reflux disease) Qualifiers: Esophagitis presence: esophagitis presence not specified Qualified Code(s): K21.9 - Gastro-esophageal reflux disease without esophagitis
[2018-01-09] MEDS: Ringers Solution, Lactated 1,000 ML IVC SCH (03:00)
[2018-01-09] MEDS: *HR* Heparin 5,000 UNIT/ML VIAL SQ SCH ×2 (05:46→17:15)
--- NOTE | 2018-01-09 08:29 | Internal Med Progress Note ---
Hospitalist Progress Note - Encounter Date of Encounter: 01/09/18 Time of Encounter: 08:27 - Subjective Interval History: Seen and examined at bedside. Patient no acute overnight events. Patient tolerating diet. Patient states that she has been developing some nausea this morning which is worrying her. Patient denies any chest pain, shortness breath , vomiting, diarrhea. - Exam Vitals: Temp Pulse Resp BP Pulse Ox 98.1 F 61 20 123/72 93 01/09/18 08:16 01/09/18 08:16 01/09/18 08:16 01/09/18 08:16 01/09/18 08:16 Exam: Constitutional: No acute distress, Alert Psych: AAO x 3 HEENT: NCAT, EOMI Neck: supple Cardio: regular rate and rhythm, +s1s2 Resp: clear to ascultation bilaterally Abd: soft, non tender/non distended, positive bowel sounds, no gaurding/reboud/ ridgitity Extremities: no clubbing/cyanosis/edema appreciated Neuro: no focal deficits appreciated Lymph: no cervical/supraclavicular adenopahty apprecitated - Assessment and Plan (1) Common bile duct calculus Current Visit: Yes Status: Acute Assessment and Plan: -Status post ERCP with stone removal 2 with temporary stent placement -Symptoms improved but with continued nausea -antiemetics for nausea (2) Pancreatitis Current Visit: Yes Status: Suspected Assessment and Plan: -Secondary to gallstone pancreatitis -Lipase dramatically improved status post ERCP -No current abdominal pain -DC IV fluids -Tolerating regular diet -Antiemetics for nausea (3) GERD (gastroesophageal reflux disease) Current Visit: Yes Status: Chronic Assessment and Plan: -continue PPI (4) Dehydration Current Visit: Yes Status: Acute Assessment and Plan: -Resolved -Secondary to pancreatitis with nausea -DC IV fluids (5) Tobacco abuse Current Visit: Yes Status: Chronic Assessment and Plan: -Counseled on smoking cessation (6) Elevated transaminase level Current Visit: Yes Status: Acute Assessment and Plan: -Secondary to choledocholithiasis -Improved status ERCP DVT Prophylaxis: -heparin sq - Summary of Assessment and Plan Summary of Assessment and Plan: Due to continued nausea we will continue to observe patient currently tolerating diet if nausea worsens or develops abdominal pain will de-escalate diet; if the patient improves throughout the day possible discharge later today versus tomorrow. If develops abdominal pain will repeat laboratory studies. - Time Spent with Patient Total time spent is greater than 50% in coordination of care (as documented) at patient's floor/unit and/or counseling patient: 25 - 35 minutes Plan of Care Discussed with: patient Internal Medicine: Result - Labs CBC & Chem 7: 01/08/18 10:02 01/08/18 10:02 Labs: Short CBC 01/08/18 Range/Units 10:02 WBC 7.6 (4.3-11.1) K/mcL Hgb 12.4 (11.5-15.4) g/dL Hct 39.2 (35.3-44.9) % Plt Count 189 (140-400) K/mcL Neutrophils # 6.5 (1.6-8.9) K/mcL BMP 01/08/18 10:02 Sodium 140 Potassium 3.7 Chloride 107 Carbon Dioxide 26 BUN 12 Creatinine 0.62 Glucose 187 H Calcium 9.1 - ABG Interpretation ABG results: PT/INR, D-dimer PT 15.2 Seconds (9.4-12.1) H 01/06/18 05:37 Consult Discharge Plan - Plan Referrals: Chantal Arteaga, ASSISTANT TEACHING PROFESSOR [Primary Care Provider] - 01/12/18 10:30 am (Follow-up as scheduled. ) (2) Pancreatitis Qualifiers: Chronicity: acute Pancreatitis type: idiopathic Acute pancreatitis complication: no infection or necrosis Qualified Code(s): K85.00 - Idiopathic acute pancreatitis without necrosis or infection (3) GERD (gastroesophageal reflux disease) Qualifiers: Esophagitis presence: esophagitis presence not specified Qualified Code(s): K21.9 - Gastro-esophageal reflux disease without esophagitis
[2018-01-09] MEDS: Aspirin Enteric Coated 81 MG Tablet PO SCH (09:39)
[2018-01-10] MEDS: *HR* Heparin 5,000 UNIT/ML VIAL SQ SCH (05:42)
[2018-01-10] MEDS: Aspirin Enteric Coated 81 MG Tablet PO SCH (07:32)
[2018-01-10 08:03] LABS: Alanine Aminotransferase 49 Units/L (7-52); Albumin 3.6 g/dL (3.5-5.7); Albumin/Globulin Ratio 1.1 (1.1-2.2); Alkaline Phosphatase 104 Units/L (34-104); Aspartate Amino Transferase 29 Units/L (13-39); BUN/Creatinine Ratio 19 (6-26); Bilirubin,Total 0.5 mg/dL (0.3-1.0); Blood Urea Nitrogen 11 mg/dL (6-20); Calcium 9.2 mg/dL (8.6-10.3); Carbon Dioxide 26 mEq/L (23-29); Chloride 104 mEq/L (98-107); Globulin 3.2 g/dL (2.4-3.5); Glucose 122 mg/dL (70-105); Osmolality,Calculated 287 (280-300); Potassium 3.7 mEq/L (3.5-5.1); Sodium 138 mEq/L (136-145); Total Protein 6.8 g/dL (6.4-8.9); eGFR For Non-African Americans > 60 (> 60)
[2018-01-10 08:31] VITALS: BP 132/77
--- NOTE | 2018-01-10 08:56 | Discharge Summary ---
- NOTES TO OUTPATIENT PROVIDER Notes to Outpatient Provider: Patient had gallstone pancreatitis and had ERCP with sphincterotomy and temporary stent placement in the common bile duct. Patient is to follow-up with gastroenterology within the next few weeks to schedule removal of temporary stent. ERCP and stent placement was performed by Dr. Nava. Date of Encounter: 01/10/18 Time of Encounter: 08:54 - Discharge Diagnosis (1) Common bile duct calculus Priority: Primary Status: Acute (2) Pancreatitis Priority: Secondary Status: Suspected Qualifiers: Chronicity: acute Pancreatitis type: idiopathic Acute pancreatitis complication: no infection or necrosis Qualified Code(s): K85.00 - Idiopathic acute pancreatitis without necrosis or infection (3) GERD (gastroesophageal reflux disease) Priority: Secondary Status: Chronic Qualifiers: Esophagitis presence: esophagitis presence not specified Qualified Code(s) : K21.9 - Gastro-esophageal reflux disease without esophagitis (4) Dehydration Priority: Secondary Status: Acute (5) Tobacco abuse Priority: Secondary Status: Chronic (6) Elevated transaminase level Priority: Secondary Status: Acute Hospital course: Ms. Dickson is a 47 year old female with previous history of pancreatic she presents to the emergency department with chief complaint of abdominal pain. The patient was found to have pancreatitis and elevated liver enzymes. Patient was seen by gastroenterology who recommended ERCP which was performed multiple stones were removed and temporary stent was placed in the common bile duct. Patient physically had resolution of her elevated lipase as well as transaminases. Patient's diet was advanced and was tolerating regular diet for 2 days prior to discharge. The patient needs to follow-up with her primary care physician within one week. Patient should also follow-up with gastroenterology within the next few weeks to schedule appointment for removal of temporary, bile duct stent; this was explained in detail to the patient. Instructed patient to return to the emergency department should she experience recurrence of her previous symptoms including nausea, vomiting, abdominal pain, jaundice, fever. Patient stable for discharge on 01/10/2018. All questions answered. Discharge discussed with: patient, nurse - Time Spent with Patient Total time spent providing and/or coordinating discharge services: Less than 30 minutes - Discharge Medications Home Medications: Aspirin [Lo-Dose Aspirin EC] 81 mg PO DAILY 09/03/17 [History] Multivit-Min/FA/Lycopen/Lutein [A Thru Z Select Multivit Tab] 1 tab PO DAILY [History] Omeprazole 20 mg PO DAILY #30 tablet. 09/03/17 [Rx] Acetaminophen [Tylenol] 650 mg PO Q4HR PRN tablet 09/05/17 [Rx] HYDROcodone/Acet 5/325 mg [[place] 5-325 mg] 1 tab PO Q6H PRN 3 Days #6 tab [Rx] Mag Hydrox/Al Hydrox/Simeth [Maalox] 15 ml PO Q6HR #300 udc 01/05/18 [Rx] Levothyroxine [Synthroid] 75 mcg PO DAILY 01/06/18 [History] Allergies/Adverse Reactions: 3 Allergy/AdvReac Type Severity Reaction Status Date / Time No Known Allergies Allergy Verified 04/01/17 10:29 Date of admission: 01/07/18 09:42 Primary care physician: Chantal Arteaga CNP Consults: 01/07/18 10:09 Consult to Gastroenterology [CONS] Routine Consulting Provider: Gastroenterology Dariela Reason for Consult: elevated LFT's Call Completed: Yes - Constitutional Vitals: Temp Pulse Resp BP Pulse Ox 98.5 F 67 20 132/77 94 01/10/18 08:22 01/10/18 08:22 01/10/18 08:22 01/10/18 08:22 01/10/18 08:22 General appearance: Present: cooperative, A&O X 3, pleasant, answers questions appropriately Exam: Constitutional: No acute distress, Alert Psych: AAO x 3 HEENT: NCAT Neck: supple Cardio: regular rate and rhythm, +s1s2 Resp: clear to ascultation bilaterally Abd: soft, non tender/non distended, positive bowel sounds Extremities: no clubbing/cyanosis/edema appreciated Neuro: no focal deficits appreciated - Patient Status Disposition: Home, Self-Care Condition: Good Functional capacity at discharge: independent ambulation Overall status at discharge: patient is back to baseline - Discharge Instructions Follow Up With: Chantal Arteaga CNP [Primary Care Provider] - 01/12/18 10:30 am (Follow-up as scheduled. ) Additional Instructions: Follow-up with with gastroenterology within the next 1-3 weeks to schedule appointment for temporary, bile duct stent removal - Diet and Activity Activity: increase activity as tolerated Diet: low fat, low cholesterol
== END 2018-01-10 10:31 | disposition home or self-care (01) | DRG 444 ==
LOC: EMEROOARM 05:26 → 2ANU 05:26
PROVIDERS: ADMIT Internal Medicine; ATTEND Internal Medicine

== ENCOUNTER 2020-01-25 07:16 | Observation (INO) ==
[2020-01-25] MEDS ORDERED: Lidocaine HCL 4 ML Topical Solution (Laryng-O-Jet Kit Sterile Pak) TP ONE (07:32)
[2020-01-25] MEDS ORDERED: CeFAZolin Syr 2,000MG/20 ML 2,000 MG/20 ML SYRINGE IVPB ONE (07:35)
[2020-01-25] MEDS ORDERED: Ringers Solution, Lactated 1,000 ML IVC SCH (07:45)
[2020-01-25] MEDS ORDERED: Celecoxib 200 MG CAPSULE PO ONE (08:17)
[2020-01-25] MEDS ORDERED: Gabapentin 100 MG CAPSULE PO ONE (08:17)
[2020-01-25] MEDS ORDERED: Acetaminophen IV 1,000 MG/100 ML INFUS..BTL IVPB ONE (08:18)
[2020-01-25] MEDS ORDERED: Famotidine 20 MG/2 ML VIAL IVP ONE (08:18)
[2020-01-25] MEDS ORDERED: Promethazine 6.25 MG in Water for inj. (sterile) 20 ML IVPB PRN (08:34)
[2020-01-25] MEDS ORDERED: Ondansetron 4 MG/2 ML VIAL IVP PRN ×2 (08:34→20:03)
[2020-01-25] MEDS ORDERED: *HR* FentaNYL (PF) 100 MCG/2 ML VIAL ONE ×2 (08:46→10:45)
[2020-01-25] MEDS ORDERED: Lidocaine -MPF 2% 2 ML VIAL ONE (08:47)
[2020-01-25] MEDS ORDERED: *HR* Rocuronium Bromide 50 MG/5 ML VIAL ONE (08:47)
[2020-01-25] MEDS ORDERED: Ondansetron 4 MG/2 ML VIAL ONE (08:47)
[2020-01-25] MEDS ORDERED: Dexamethasone 4 MG/ML VIAL ONE ×2 (08:47→10:29)
[2020-01-25] MEDS ORDERED: EPHEDrine 50 MG/ML VIAL ONE (09:16)
[2020-01-25] MEDS ORDERED: *HR* Propofol 200 MG/20 ML VIAL IVP ONE (09:17)
[2020-01-25] MEDS ORDERED: *HR* Magnesium Sulfate 1 GM/2 ML VIAL ONE (10:40)
[2020-01-25] MEDS: *HR* HYDROmorphone PF 0.5 MG/0.5 ML SYRINGE IVP PRN ×4 (12:16→12:53)
[2020-01-25] MEDS: 0.9 % Sodium Chloride w KCl 20 MEQ/1,000 ML MLS IVC SCH (21:25)
[2020-01-25] MEDS: Ketorolac 15 MG/ML VIAL IVP PRN (22:31)
[2020-01-26] MEDS: Acetaminophen IV 1,000 MG/100 ML INFUS..BTL IVPB SCH ×4 (02:19→18:36)
[2020-01-26] MEDS: Ketorolac 15 MG/ML VIAL IVP PRN (07:34)
[2020-01-26] MEDS: 0.9 % Sodium Chloride w KCl 20 MEQ/1,000 ML MLS IVC SCH (11:11)
[2020-01-27] MEDS: Acetaminophen IV 1,000 MG/100 ML INFUS..BTL IVPB SCH ×2 (00:22→05:32)
[2020-01-27] MEDS: 0.9 % Sodium Chloride w KCl 20 MEQ/1,000 ML MLS IVC SCH (01:00)
[2020-01-27 06:59] VITALS: BP 128/80
[2020-01-27] MEDS ORDERED: Ibuprofen 800 MG TABLET PO ONE (08:20)
[2020-01-27] MEDS ORDERED: *HR* OxyCODONE Immed Rel 5 MG TABLET PO PRN (08:21)
[2020-01-27] MEDS ORDERED: Aspirin Enteric Coated 81 MG Tablet PO SCH ×2 (09:00→21:00)
[2020-01-27] MEDS ORDERED: Acetaminophen 325 MG TABLET PO ONE (11:00)
== END 2020-01-27 16:48 | disposition home or self-care (01) ==
LOC: 3ANU 07:16 → SAMDAY 07:16 → 3ANU 19:31
PROVIDERS: ADMIT Surgery; ATTEND Surgery